=== PATIENT | male | born 1970 | race Hispanic/Latino ===

== ENCOUNTER 2016-07-04 19:03 | Inpatient (IN) | payer OTHER ==
[~2016-07-04] VITALS: Ht 165.1 cm; Wt 86.5 kg
[~2016-07-04 19:03] MED LIST: PERC5TAB6 PO
[2016-07-04 20:07] LABS: MEAN CORPUSCULAR HEMOGLOBIN 27.7 pg (27.0-33.0); MEAN CORPUSCULAR HGB CONC 33.1 g/dl (32.0-36.5); MEAN CORPUSCULAR VOLUME 83.7 fl (80.0-96.0); RED CELL DISTRIBUTION WIDTH 12.8 % (11.5-14.5); WHITE BLOOD COUNT 6.9 K/mm3 (4.0-10.0)
[2016-07-04 20:24] LABS: AMPHETAMINES LEVEL URINE NEGATIVE (NEGATIVE); BENZODIAZEPINES URINE NEGATIVE (NEGATIVE); COCAINE METABOLITE URINE NEGATIVE (NEGATIVE); CONTROL LINE INT CTR LINE PRESENT; METHADONE URINE NEGATIVE (NEGATIVE); OPIATES URINE NEGATIVE (NEGATIVE); TRICYCLIC ANTIDEPRESS URINE NEGATIVE (NEGATIVE)
[2016-07-04 20:46] LABS: ALBUMIN 3.6 GM/DL (3.2-5.2); ALBUMIN/GLOBULIN RATIO 1.24 (1.00-1.93); ALKALINE PHOSPHATASE 117 U/L (45-117); ALT/SGPT 62 U/L (12-78); ANION GAP 9 MEQ/L (8-16); AST/SGOT 20 U/L (15-37); BILIRUBIN,DIRECT 0.1 MG/DL (0.0-0.2); BILIRUBIN,TOTAL 0.3 MG/DL (0.2-1.0); BLOOD UREA NITROGEN 8 MG/DL (7-18); CALCIUM LEVEL 8.7 MG/DL (8.5-10.1); CARBON DIOXIDE LEVEL 32 MEQ/L (21-32); CHLORIDE LEVEL 105 MEQ/L (98-107); CREATININE FOR GFR 1.12 MG/DL (0.70-1.30); GLOMERULAR FILTRATION RATE > 60.0 (>60); GLUCOSE, FASTING 85 MG/DL (70-105); POTASSIUM SERUM 3.9 MEQ/L (3.5-5.1); SODIUM LEVEL 146 MEQ/L (136-145); TOTAL PROTEIN 6.5 GM/DL (6.4-8.2)
[2016-07-04] MEDS ORDERED: LIDOCAINE 5% (LIDODERM) PATCH TD SCH (21:00)
[2016-07-04] MEDS ORDERED: MAXA10TA14 PO (21:46)
[2016-07-04] MEDS ORDERED: MELO7.5T6 PO (21:46)
[2016-07-04] MEDS ORDERED: LORA10TA2 PO (21:46)
[2016-07-04] MEDS ORDERED: ZOLO100T PO (21:46)
[2016-07-04] MEDS ORDERED: LIDO5DIS36 TD (21:46)
[2016-07-04] MEDS ORDERED: MINI5CAP PO (21:46)
[2016-07-04] MEDS ORDERED: OMEP20CA3 PO (21:46)
[2016-07-04] MEDS ORDERED: DICL1GEL3 TD (21:46)
[2016-07-04] MEDS ORDERED: LOSA25TA8 PO (21:46)
[2016-07-04] MEDS ORDERED: MAALOX 30 ML SUSP *UDC PO PRN (23:00)
[2016-07-04] MEDS ORDERED: traZODone 50 MG TAB PO PRN (23:00)
[2016-07-04] MEDS ORDERED: MOM 30ML SUSPENSION UDC PO PRN (23:00)
--- NOTE | 2016-07-05 00:02 | EDDOCDS ---
Physician Documentation [facility] Name: Pablito Schneider Age: 46 yrs Sex: Male : 1970 Arrival Date: 07/04/2016 Time: 19:03 Bed BHU1 Private MD: Yani CASAS Disposition: 07/04/16 21:13 Hospitalization ordered by Juan Gomes for Inpatient Admission. Preliminary diagnosis are Suicidal ideations, Major depressive disorder, recurrent. - Bed requested for Admit. - Status is Inpatient Admission. jeffrey - Condition is Stable. - Problem is an acute exacerbation. - Symptoms are unchanged. Historical: - Allergies: Motrinstomach bleeds; - Home Meds: 1. Minipress 5 mg Oral cap 1 cap 2 times per day 2. Zoloft 100 mg Oral tab 1 tab once daily - PMHx: TBI; Hypertension; - PSHx: foot surgery; - Social history: Smoking status: Patient states was never smoker of tobacco. Preferred Language: Estonian. - : The pt / caregiver states he / she is not on anticoagulants. Home medication list is obtained from the patient. - Exposure Risk Screening:: None identified. Vital Signs: 07/04 19:05 BP 147 / 97; Pulse 99; Resp 16; Temp 98.2(O); Pulse Ox 99% ; Weight 83.91 kg / 184.99 cmb lbs; Height 5 ft. 5 in. (165.10 cm); Pain 6/10; 19:05 Body Mass Index 30.79 (83.91 kg, 165.10 cm) cmb MDM: 19:44 Consult PFS/PSA/Media Marketing Specialist ordered. ke 19:44 Consult PFS/PSA/Media Marketing Specialist: Patient's case requires discussion with on-call Psychiatrist ordered. 19:44 PSA/PFS to call Nursing Machine Ii Cutter, to enter patient data on [place] Safe Act if patient ke involuntarily admitted or transferred for SI or HI ordered. 19:44 Confirm accurate psychiatric medication list and times of last dosage ordered. ke 19:44 Detain Pt Until Medically/PFS Cleared ordered. ke 19:45 Acetaminophen Level Ordered. EDMS 19:45 Basic Metabolic Profile Ordered. EDMS 19:45 Complete Blood Count Ordered. EDMS 19:45 Drug Eval Toxicology ED Only Ordered. EDMS 19:45 Ethyl Alcohol (ethanol) Ordered. EDMS 19:45 Liver Profile Ordered. EDMS 19:45 Salicylate Level Ordered. EDMS 19:45 Thyroid Stimulating Hormone Ordered. EDMS 21:10 Acetaminophen Level Reviewed. ke 21:10 Basic Metabolic Profile Reviewed. ke 21:10 Complete Blood Count Reviewed. ke 21:10 Salicylate Level Reviewed. ke 21:10 Drug Eval Toxicology ED Only Reviewed. ke 21:10 Ethyl Alcohol (ethanol) Reviewed. ke 21:10 Liver Profile Reviewed. ke 21:10 Thyroid Stimulating Hormone Reviewed. ke 21:13 BED REQUEST+ADM ordered. EDMS 22:01 Financial registration complete. gjb 23:06 Admit to IM: ordered. EDMS 23:06 REGULAR DIET ordered. EDMS 23:25 [facility] Payment Agreement was scanned into [employer] and attached to record. gjb 23:27 [facility] Legal paperwork was scanned into [employer] and attached to record. jfb 23:27 Consult PFS/PSA/Media Marketing Specialist complete. jfb 23:27 Consult PFS/PSA/Media Marketing Specialist: Patient's case requires discussion with on-call jfb Psychiatrist complete. 23:27 PSA/PFS to call Nursing Machine Ii Cutter, to enter patient data [place] Safe [place] if patient jfb involuntarily admitted or transferred for SI or HI complete. Signatures: Dispatcher [employer] EDMD Lily Ji, RN RN Antwan Borja, DIVISION ENGINEER DIVISION ENGINEER Jessie Romero PSA PSA Julia Kate, RN RN Janae Stubbs The chart was reviewed and I authenticate all verbal orders and agree with the evaluation and treatment provided.Attachments: 23:25 [facility] [place] tonny MTDD
--- NOTE | 2016-07-05 00:03 | EDDOCDS ---
Nurse's Notes [facility] Name: Pablito Schneider Age: 46 yrs Sex: Male : 1970 Arrival Date: 07/04/2016 Time: 19:[address] [facility] Diagnosis: Suicidal ideations;Major depressive disorder, recurrent Presentation: 07/04 19:16 Presenting complaint: Patient states: history of concussion a few years ago, reports sls1 ever since has been depressed, has anger issues, and SI with no plan. 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 Mental Health Triage Level: Level 2: The patient displays active suicidal ideations. Adult Sepsis Screening: The patient does not have new or worsening altered mentation. Patient's respiratory rate is less than 22. Systolic blood pressure is greater than 100. Patient has a qSOFA score of 0- Negative Sepsis Screen. Suicide/Homicide risk assessment- The patient admits to and/or has been reported to be having suicidal ideations. Patient denies SI and HI but presents with another emotional, behavioral or other mental health complaint. The patient reports that he/she has not been admitted to an inpatient mental health facility in the last 30 days. The patient reports that he/she does not have a recent or current history of substance abuse. The patient reports that he/she has a prior history of suicide attempt and/or organized plan. 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 Transition of care: patient was not received from another setting of care. Red Flag criteria, patient assessed and taken directly to a bed. 19:16 Acuity: CHERI Level 3 sls1 19:16 Method Of Arrival: Walkin/Carried/Asstd sls1 Triage Assessment: 19:18 General: Appears in no apparent distress, Behavior is crying. Pain: Denies pain. Pt sls1 Declines HIV testing. The patient is triaged at the bedside. See Assessment in Nurses Notes section of ED record. Neurological: No deficits noted. Respiratory: No deficits noted. Derm: No deficits noted. Historical: - Allergies: Motrinstomach bleeds; - Home Meds: 1. Minipress 5 mg Oral cap 1 cap 2 times per day 2. Zoloft 100 mg Oral tab 1 tab once daily - PMHx: TBI; Hypertension; - PSHx: foot surgery; - Social history: Smoking status: Patient states was never smoker of tobacco. Preferred Language: Fijian. - : The pt / caregiver states he / she is not on anticoagulants. Home medication list is obtained from the patient. - Exposure Risk Screening:: None identified. Screenin:47 Screening information is obtained from the patient. Fall risk: No risks identified. mgs Assistance ADL's: requires no assistance with activities of daily living. Abuse/DV Screen: The patient / caregiver reports he/she is: not in a situation that causes fear, pain or injury. Nutritional screening: No deficits noted. Advance Directives: Currently, there is no health care proxy. There is no active DNR order. home support is adequate. Assessment: 20:41 General: Appears in no apparent distress, comfortable, Behavior is appropriate for age, ka4 cooperative, pleasant. Neurological: Level of Consciousness is awake, alert, listless, obeys commands, Oriented to person, place, time, Cash Posting Specialist are equal bilaterally Moves all extremities. Gait is steady, Speech is normal, Facial symmetry appears normal. Respiratory: Airway is patent Respiratory effort is even, unlabored, Respiratory pattern is regular, symmetrical. GI: Abdomen is non- distended. Derm: Skin is intact, is healthy with good turgor, Skin is pink, warm & dry. 22:31 General: Appears in no apparent distress, Behavior is cooperative. Pain: Location: mgs right elbow, right hyand, bilateral feet, bilateral knees Pain currently is 5 out of 10 on a pain scale. Neurological: Level of Consciousness is awake, alert, Oriented to person, place, time. Cardiovascular: Capillary refill < 3 seconds Heart tones S1 S2 present. Respiratory: Airway is patent Respiratory effort is even, unlabored, Respiratory pattern is regular, symmetrical. Derm: Skin is pink, warm & dry. 22:32 General: Appears in no apparent distress, comfortable, Behavior is appropriate for age, ka4 cooperative, pleasant. Respiratory: Airway is patent Respiratory effort is even, unlabored, Respiratory pattern is regular, symmetrical. Derm: Skin is pink, warm & dry. 23:47 General: Appears in no apparent distress, Behavior is appropriate for age, cooperative. mgs Neurological: Level of Consciousness is awake, alert, Oriented to person, place, time. Cardiovascular: Capillary refill < 3 seconds Heart tones S1 S2 present. Respiratory: Airway is patent Respiratory effort is even, unlabored, Respiratory pattern is regular, symmetrical. Derm: Skin is pink, warm & dry. Mental Health Eval: 23:27 Status: 6 years active duty with three deployments and 9 years [employer] jfb [facility]: The patient is not an established patient of [facility]. Referral Information: Evaluation referral is generated by weigh and charge worker at [facility] Mrs. Busch [phone] had PT's YANA bring him to ED. The patient was referred for evaluation because Depression with SI. Subjective: The patients chief complaint is PT states he is from [place] but is here for medical care in the [facility] and he ahs been there for about 1 year. He was recently told he has a month or two left at [facility] then he should be medically cleared to return to [place] but PT is very upset by this. PT feels that if he could ETS from [facility] and not have to return to his unit he would feel less stress but he could not elaborate on why he wants to avoid his old unit. PT states he had three deployments and in each one he became angrier and angrier and he also experienced multiple loss of life. PT denies any treatment for mental health prior to [facility]. 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 PT admits that he has "thoughts" meaning SI but could not described frequency or intensity. He often wakes up from nightmares and has had poor sleep for awhile. PT cannot CFS and is open to admission. Delusions are denied. Patient's mood is depressed, Hallucinations are denied. Mental Health history: anxiety, depression, sleep disturbance, suicide ideation Mental Health Admissions: 02/2016 transfer to [facility] [place] Current Outpatient Mental Health Services: Psychiatrist / Agency: PT receiving counseling and medication management via the [facility]. He also has a mental health social worker via [facility]. Patient presents to Emergency Department with the following symptoms within the past 2 weeks: decreased appetite, depressed mood, feelings of helplessness/hopelessness, labile mood, sleep disturbance - erratic suicidal ideation with no plan. Substance abuse: Pt denies. Mental status exam: Patients appearance is appropriate, Patient's behavior is cooperative, Speech is normal. Affect is flat. Mood is depressed. Hallucinations are denied. Appetite is poor. Memory is fair. Energy level is normal. Content of thought is depressive. cannot CFS Thought process is intact. Cognitive level is oriented to person, place, time and situation Patient's insight is fair. Judgement is fair. Rapport with interviewer is good. Suicidal Ideation is denied. Homicidal ideation is denied. Disposition: Medically cleared for disposition by Antwan PULLIAM Psychiatric Consult is performed by phone with Dr Juan Gomes MD. [facility] Admission Criteria: The patient is experiencing suicidal ideation. The patient requires continuous observation and/or control to protect self, others or property. The patient's care requires a multi-modal treatment plan under close supervision and coordination due to the complexity and severity of the patient's symptoms. Legal Status: Patient's legal status will be Emergency admission: . [employer] Safe Act: [employer] Safe Act is not applicable because patient was registered less than 6 months ago. DSM-V Differential Diagnosis: Unspecified Depressive Disorder (F32.9). Insurance Pre-Certification: Not Required, . Awaiting: transfer to [facility]. Vital Signs: 19:05 BP 147 / 97; Pulse 99; Resp 16; Temp 98.2(O); Pulse Ox 99% ; Weight 83.91 kg; Height 5 cmb ft. 5 in. (165.10 cm); Pain 6/10; 19:05 Body Mass Index 30.79 (83.91 kg, 165.10 cm) [facility] Vitals: 19:05 Log In Time: July 04, 2016 at 19:03. b ED Course: 19:05 Patient visited by Katherin Elmore. cmb 19:05 [facility] is Private Physician. cmb 19:05 Patient moved to Waiting cmb 19:06 Patient moved to [facility] sls1 19:17 Triage Initiated sls1 19:43 Patient visited by Paulie Rodriguez. tr 19:44 Antwan Brown FNP is [facility]. ke 19:44 Patient visited by Antwan Brown FNP. ke 19:44 Patient visited by Antwan Brown FNP. ke 20:00 Patient visited by Paulie Rodriguez. tr 20:14 Patient visited by Paulie Rodriguez. tr 20:30 Psych Safety Check: Location: Psych Room. Visual Assessment: Cooperative. tr 20:42 Patient visited by Raquel Young LPN. ka4 20:42 Property patient has hearing aids with him . ka4 20:43 Patient visited by Paulie Rodriguez. tr 21:02 Patient visited by Paulie Rodriguez. tr 21:13 Juan Gomes MD is Hospitalizing Provider. ke 21:16 Patient visited by Paulie Rodriguez. tr 21:32 Patient visited by Paulie Rodriguez. tr 21:59 Patient visited by Paulie Rodriguez. tr 22:28 Patient visited by Paulie Rodriguez. tr 22:32 Patient visited by Marko Jacobs RN. mgs 22:33 Patient visited by Raquel Young LPN. ka4 23:25 [facility] [place] Agreement was scanned into [employer] and attached to record. gjb 23:27 [facility] Legal paperwork was scanned into [employer] and attached to record. jfb 23:35 Patient visited by Paulie Rodriguez. tr 23:46 Marko Jacobs RN is Primary Nurse. mgs 23:47 Patient visited by Paulie Rodriguez. tr 23:48 Patient visited by Marko Jacobs RN. mgs Attachments: 23:27 [facility] Legal paperwork jfb Order Results: Lab Order: Acetaminophen Level; SPEC'M 07/04/16 19:54 Test: ACETAMINOPHEN LEVEL; Value: < 2.0; Range: 10.0-30.0; Abnormal: Below low normal; Units: UG/ML; Status: F Lab Order: Basic Metabolic Profile; SPEC'M 07/04/16 19:54 Test: GLUCOSE, FASTING; Value: 85; Range: 70-105; Units: MG/DL; Status: F Test: BLOOD UREA NITROGEN; Value: 8; Range: 7-18; Units: MG/DL; Status: F Test: CREATININE FOR GFR; Value: 1.12; Range: 0.70-1.30; Units: MG/DL; Status: F Test: GLOMERULAR FILTRATION RATE; Value: > 60.0; Range: >60; Status: F Test: SODIUM LEVEL; Value: 146; Range: 136-145; Abnormal: Above high normal; Units: MEQ/L; Status: F Test: POTASSIUM SERUM; Value: 3.9; Range: 3.5-5.1; Units: MEQ/L; Status: F Test: CHLORIDE LEVEL; Value: 105; Range: 98-107; Units: MEQ/L; Status: F Test: CARBON DIOXIDE LEVEL; Value: 32; Range: 21-32; Units: MEQ/L; Status: F Test: ANION GAP; Value: 9; Range: 8-16; Units: MEQ/L; Status: F Test: CALCIUM LEVEL; Value: 8.7; Range: 8.5-10.1; Units: MG/DL; Status: F Test Note: ; Units are mL/min/1.73 m2 Chronic Kidney Disease Staging per NKF: Stage I & II GFR >=60 Normal to Mildly Decreased Stage III GFR 30-59 Moderately Decreased Stage IV GFR 15-29 Severely Decreased Stage V GFR <15 Very Little GFR Left ESRD GFR <15 on FORGING DIES FINAL FINISHER Lab Order: Complete Blood Count; SPEC'M 07/04/16 19:54 Test: WHITE BLOOD COUNT; Value: 6.9; Range: 4.0-10.0; Units: K/mm3; Status: F Test: RED BLOOD COUNT; Value: 4.69; Range: 4.30-6.10; Units: M/mm3; Status: F Test: HEMOGLOBIN; Value: 13.0; Range: 14.0-18.0; Abnormal: Below low normal; Units: g/dl; Status: F Test: HEMATOCRIT; Value: 39.2; Range: 42.0-52.0; Abnormal: Below low normal; Units: %; Status: F Test: MEAN CORPUSCULAR VOLUME; Value: 83.7; Range: 80.0-96.0; Units: fl; Status: F Test: MEAN CORPUSCULAR HEMOGLOBIN; Value: 27.7; Range: 27.0-33.0; Units: pg; Status: F Test: MEAN CORPUSCULAR HGB CONC; Value: 33.1; Range: 32.0-36.5; Units: g/dl; Status: F Test: RED CELL DISTRIBUTION WIDTH; Value: 12.8; Range: 11.5-14.5; Units: %; Status: F Test: PLATELET COUNT, AUTOMATED; Value: 294; Range: 150-450; Units: k/mm3; Status: F Lab Order: Drug Eval Toxicology ED Only; SPEC'M 07/04/16 19:57 Test: AMPHETAMINES LEVEL URINE; Value: NEGATIVE; Range: NEGATIVE; Status: F Test: BARBITURATES URINE; Value: NEGATIVE; Range: NEGATIVE; Status: F Test: BENZODIAZEPINES URINE; Value: NEGATIVE; Range: NEGATIVE; Status: F Test: CANNABINOIDS URINE; Value: NEGATIVE; Range: NEGATIVE; Status: F Test: COCAINE METABOLITE URINE; Value: NEGATIVE; Range: NEGATIVE; Status: F Test: METHADONE URINE; Value: NEGATIVE; Range: NEGATIVE; Status: F Test: OPIATES URINE; Value: NEGATIVE; Range: NEGATIVE; Status: F Test: TRICYCLIC ANTIDEPRESS URINE; Value: NEGATIVE; Range: NEGATIVE; Status: F Test Note: ; ALL PRESUMPTIVE POSITIVE FINDINGS ARE UNCONFIRMED NORMAL VALUES THRESHOLD IN NG/ML AMPHETAMINES 1000 METHAMPHETAMINES 1000 BARBITURATES 300 BENZODIAZEPINES 300 CANNABINOIDS (THC) 50 COCAINE METABOLITE 300 METHADONE 300 OPIATES 300 PHENCYCLIDINE 25 TRICYCLIC ANTIDEPRESSANTS 1000 RESULTS ARE FOR MEDICAL PURPOSES ONLY. ALL URINE SPECIMENS WILL BE SAVED FOR 3 DAYS. IF CONFIRMATION OF A PRESUMPTIVE POSTIVE SCREEN RESULT IS DESIRED, CALL CHEMISTRY ([phone]) AND REQUEST URINE TO BE SENT TO REFERENCE LAB. FOR A LIST OF CLOSELY RELATED COMPOUNDS PLEASE CALL THE LAB. Lab Order: Ethyl Alcohol (ethanol); SPEC'M 07/04/16 19:54 Test: ETHYL ALCOHOL (ETHANOL); Value: < 0.003; Range: 0.000-0.010; Units: %; Status: F Lab Order: Liver Profile; SPEC'M 07/04/16 19:54 Test: AST/SGOT; Value: 20; Range: 15-37; Units: U/L; Status: F Test: ALT/SGPT; Value: 62; Range: 12-78; Units: U/L; Status: F Test: ALKALINE PHOSPHATASE; Value: 117; Range: 45-117; Units: U/L; Status: F Test: BILIRUBIN,TOTAL; Value: 0.3; Range: 0.2-1.0; Units: MG/DL; Status: F Test: BILIRUBIN,DIRECT; Value: 0.1; Range: 0.0-0.2; Units: MG/DL; Status: F Test: TOTAL PROTEIN; Value: 6.5; Range: 6.4-8.2; Units: GM/DL; Status: F Test: ALBUMIN; Value: 3.6; Range: 3.2-5.2; Units: GM/DL; Status: F Test: ALBUMIN/GLOBULIN RATIO; Value: 1.24; Range: 1.00-1.93; Status: F Lab Order: Salicylate Level; SPEC'M 07/04/16 19:54 Test: SALICYLATE LEVEL; Value: < 1.7; Range: 5.0-30.0; Abnormal: Below low normal; Units: MG/DL; Status: F Lab Order: Thyroid Stimulating Hormone; SPEC'M 07/04/16 19:54 Test: THYROID STIMULATING HORMONE; Value: 2.430; Range: 0.358-3.740; Units: uIU/ML; Status: F Outcome: 21:13 Decision to Hospitalize by Provider. carito 07/05 00:01 Patient left the ED. jeffrey Signatures: Lily Ji, RN RN Paulie Baker Karl, STATEMENT SERVICES REPRESENTATIVE STATEMENT SERVICES REPRESENTATIVE Jessie Romero, SARAH PSA Julia Kate RN RN sls1 Boshart, Chelsea cmb Anderson, Kodie, LPN LPN ka Marko Jacobs RN RN mgs Beck, Gabriela gjb MTDD
[2016-07-05 00:07] VITALS: BP 135/99
[2016-07-05] MEDS ORDERED: RIZATRIPTAN BENZOATE 10 MG TAB PO PRN (00:30)
[2016-07-05] MEDS ORDERED: LORATADINE 10 MG TAB PO PRN (00:30)
[2016-07-05] MEDS: SERTRALINE 100 MG TAB PO SCH ×2 (02:03→21:33)
[2016-07-05] MEDS: PRAZOSIN 1 MG CAP PO SCH ×2 (02:03→21:33)
[2016-07-05] MEDS: MELOXICAM (MOBIC) 7.5 MG TAB PO SCH ×2 (02:03→21:33)
[2016-07-05] MEDS ORDERED: PRAZOSIN 1 MG CAP PO SCH (09:00)
[2016-07-05] MEDS: LOSARTAN 25 MG TAB PO SCH (09:32)
[2016-07-05] MEDS: OMEPRAZOLE 20 MG CAP PO SCH (09:32)
[2016-07-05] MEDS: LIDOCAINE 5% (LIDODERM) PATCH TD SCH (09:32)
--- NOTE | 2016-07-05 09:32 | HPEPDOC ---
[facility] History & Physical History and Physical Entry made in error. Laboratory Data [facility] Labs Laboratory Tests 2 07/04/16 19:54: Acetaminophen Level < 2.0L, Aspartate Amino Transf (AST/SGOT) 20, Alanine Aminotransferase (ALT/SGPT) 62, Alkaline Phosphatase 117, Total Bilirubin 0.3, Direct Bilirubin 0.1, Albumin 3.6, Albumin/Globulin Ratio 1.24, Anion Gap 9, Calcium Level 8.7, Ethyl Alcohol Level < 0.003, Glomerular Filtration Rate > 60.0, Salicylates Level < 1.7L, Thyroid Stimulating Hormone (TSH) 2.430, Total Protein 6.5 07/04/16 19:57: Urine Amphetamine Level NEGATIVE, Urine Benzodiazepines Screen NEGATIVE, Urine Cannabinoids NEGATIVE, Urine Cocaine Metabolite NEGATIVE, Urine Opiates Screen NEGATIVE, Urine Barbiturates, Qualitative NEGATIVE, Urine Methadone Screen NEGATIVE, Urine Tricyclic Antidepressants NEGATIVE CBC/BMP Laboratory Tests 07/04/16 19:54 Red Blood Count 4.69, Mean Corpuscular Volume 83.7, Mean Corpuscular Hemoglobin 27.7, Mean Corpuscular Hemoglobin Concent 33.1, Red Cell Distribution Width 12.8 Medications Scheduled (Diclofenac Sodium) 1 % Gel 1 DOSE TD BID (Reported) PLACES MEDICATION ON FEET Losartan Potassium (Losartan Potassium) 25 Mg Tab 25 MG PO DAILY (Reported) Meloxicam (Meloxicam) 7.5 Mg Tab 7.5 MG PO QHS (Reported) Prazosin HCl (Minipress) 5 Mg Cap 5 MG PO QHS (Reported) Sertraline Hcl (Zoloft) 100 Mg Tab 100 MG PO QHS (Reported) Scheduled PRN Lidocaine (Lidoderm) 5 % Dis 1 PATCH TD QHS PRN PRN PAIN (Reported) PLACES ON FEET Loratadine (Loratadine) 10 Mg Tab 10 MG PO DAILY PRN PRN ALLERGIES (Reported) Omeprazole (Omeprazole) 20 Mg Cap 20 MG PO DAILY PRN PRN EPIGASTRIC DISCOMFORT ( Reported) Rizatriptan Benzoate (Maxalt) 10 Mg Tab 10 MG PO ASDIRECTED PRN PRN MIGRAINE ( Reported) Allergies Coded Allergies: Ibuprofen (Verified Allergy, Unknown, 02/22/16) Giovana Monroe Jul 05, 2016 09:32 Mood: [Irrational, Elated, Irritable, Depressed, Anxious, Restricted, Neutral]. Affect: [Appropriate, Reactive, Flat, Constricted, Animated, Irrational, Expansive, Restricted, Depressed, Anxious, Agitated, Hypomania, Lability]. ASSESSMENT: . DIAGNOSES: 1. . 2. . 3. . PROBLEM LIST: 1. . 2. . 3. . MANAGEMENT PLAN: 1. . 2. . 3. . ESTIMATED LENGTH OF STAY: - days. Laboratory Data 24[facility] Labs Laboratory Tests 2 07/04/16 19:54: Acetaminophen Level < 2.0L, Aspartate Amino Transf (AST/SGOT) 20, Alanine Aminotransferase (ALT/SGPT) 62, Alkaline Phosphatase 117, Total Bilirubin 0.3, Direct Bilirubin 0.1, Albumin 3.6, Albumin/Globulin Ratio 1.24, Anion Gap 9, Calcium Level 8.7, Ethyl Alcohol Level < 0.003, Glomerular Filtration Rate > 60.0, Salicylates Level < 1.7L, Thyroid Stimulating Hormone (TSH) 2.430, Total Protein 6.5 07/04/16 19:57: Urine Amphetamine Level NEGATIVE, Urine Benzodiazepines Screen NEGATIVE, Urine Cannabinoids NEGATIVE, Urine Cocaine Metabolite NEGATIVE, Urine Opiates Screen NEGATIVE, Urine Barbiturates, Qualitative NEGATIVE, Urine Methadone Screen NEGATIVE, Urine Tricyclic Antidepressants NEGATIVE CBC/BMP Laboratory Tests 07/04/16 19:54 Red Blood Count 4.69, Mean Corpuscular Volume 83.7, Mean Corpuscular Hemoglobin 27.7, Mean Corpuscular Hemoglobin Concent 33.1, Red Cell Distribution Width 12.8 Medications Scheduled (Diclofenac Sodium) 1 % Gel 1 DOSE TD BID (Reported) PLACES MEDICATION ON FEET Losartan Potassium (Losartan Potassium) 25 Mg Tab 25 MG PO DAILY (Reported) Meloxicam (Meloxicam) 7.5 Mg Tab 7.5 MG PO QHS (Reported) Prazosin HCl (Minipress) 5 Mg Cap 5 MG PO QHS (Reported) Sertraline Hcl (Zoloft) 100 Mg Tab 100 MG PO QHS (Reported) Scheduled PRN Lidocaine (Lidoderm) 5 % Dis 1 PATCH TD QHS PRN PRN PAIN (Reported) PLACES ON FEET Loratadine (Loratadine) 10 Mg Tab 10 MG PO DAILY PRN PRN ALLERGIES (Reported) Omeprazole (Omeprazole) 20 Mg Cap 20 MG PO DAILY PRN PRN EPIGASTRIC DISCOMFORT ( Reported) Rizatriptan Benzoate (Maxalt) 10 Mg Tab 10 MG PO ASDIRECTED PRN PRN MIGRAINE ( Reported) Allergies Coded Allergies: Ibuprofen (Verified Allergy, Unknown, 02/22/16) Giovana Monroe Jul 05, 2016 09:32
--- NOTE | 2016-07-05 10:53 | HPEPDOC ---
Medical History and Physical Date of Admission Jul 05, 2016 at 00:02 History and Physical PCP: [facility] ATTENDING: Dr. Andre Dolan HPI: 46yoM admitted to [facility] for MDD, being medically examined today. No acute medical complaints today. Denies any fevers, chills, weakness, fatigue, [place], CP, SOB, cough, palpitations, abdominal pain, N/V/D or changes in bowel or bladder habits. 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 ROS: As noted in HPI, otherwise 11pt ROS of systems reviewed and unremarkable PE: GEN: 46yoM, appears stated age. Well-nourished, well developed. No acute distress. Alert and oriented x 3. Pleasant, interactive. HEENT: Normocephalic, atraumatic. Pupils are equal, round, and reactive to light. Extraocular movements are intact. No nystagmus appreciated. Sclera are nonicteric. Conjunctiva without injection. Nose midline. Nasal turbinates without bogginess. EACs both patent BL. TMs both visualized and hdz with good cone of light, no bulging or erythema. No facial asymmetry. Moist mucous membranes. Dentition fair. Pharynx pink and moist, no cobblestoning. Neck supple , trachea midline. No lymphadenopathy or thyromegaly appreciated. CHEST: Regular rate and rhythm, +S1, +S2 LUNGS: Clear to auscultation bilaterally. No wheezes, rales, or rhonchi. Breathing appears symmetric and easy. Patient is speaking in full sentences. No accessory muscle use. ABD: Round, soft, non-tender, non-distended. +Bowel sounds throughout. No rebound or guarding. No costovertebral angle tenderness. EXT: Pulses 2+ bilaterally dorsalis pedis and radial. No lower extremity edema appreciated. SKIN: [place], dry, warm. Capillary refill <2sec. No rashes. NEURO: Alert and oriented x 3. Cranial nerves III-XII are intact. No focal deficits appreciated. He is wearing a brace on his right wrist. EKG: pending. A&P: 46yoM admitted to [facility] for MDD 1. Psych. Plan per Psychiatry. Obtain baseline EKG to assure the safety of psychiatric medications as they can prolong the QT interval. 2. Carpal tunnel syndrome. Currently wearing brace on the right. Carpal tunnel release is pending with [facility] scheduled 07/11/16. Continue Mobic 7.5 mg daily. 3. Hypertension. Continue Cozaar 25 mg daily. 4. Follow up with PCP on discharge. [facility]. 5. GERD. Continue Prilosec 20 mg daily. 6. Allergic rhinitis. Continue Claritin daily. 7. Chronic headaches. Continue Maxalt as needed at onset of headache. 8. Staff member present throughout exam, safety aid Billy. Vital Signs Vital Signs Label Value Date Time Patient Temperature 98.5 degrees F 07/05/16 000 Temperature Source Tympanic 07/05/16 000 Pulse 89 07/05/16 000 Respiratory Rate 18 bpm 07/05/16 000 Blood Pressure Assessment 135/99 (111) 07/05/16 0007 Laboratory Data Labs 24H Laboratory Tests 2 07/04/16 19:54: Acetaminophen Level < 2.0L, Aspartate Amino Transf (AST/SGOT) 20, Alanine Aminotransferase (ALT/SGPT) 62, Alkaline Phosphatase 117, Total Bilirubin 0.3, Direct Bilirubin 0.1, Albumin 3.6, Albumin/Globulin Ratio 1.24, Anion Gap 9, Calcium Level 8.7, Ethyl Alcohol Level < 0.003, Glomerular Filtration Rate > 60.0, Salicylates Level < 1.7L, Thyroid Stimulating Hormone (TSH) 2.430, Total Protein 6.5 07/04/16 19:57: Urine Amphetamine Level NEGATIVE, Urine Benzodiazepines Screen NEGATIVE, Urine Cannabinoids NEGATIVE, Urine Cocaine Metabolite NEGATIVE, Urine Opiates Screen NEGATIVE, Urine Barbiturates, Qualitative NEGATIVE, Urine Methadone Screen NEGATIVE, Urine Tricyclic Antidepressants NEGATIVE CBC/BMP Laboratory Tests 07/04/16 19:54 Red Blood Count 4.69, Mean Corpuscular Volume 83.7, Mean Corpuscular Hemoglobin 27.7, Mean Corpuscular Hemoglobin Concent 33.1, Red Cell Distribution Width 12.8 Home Medications Scheduled (Diclofenac Sodium) 1 % Gel 1 DOSE TD BID PLACES MEDICATION ON FEET Losartan Potassium (Losartan Potassium) 25 Mg Tab 25 MG PO DAILY Meloxicam (Meloxicam) 7.5 Mg Tab 7.5 MG PO QHS Prazosin HCl (Minipress) 5 Mg Cap 5 MG PO QHS Sertraline Hcl (Zoloft) 100 Mg Tab 100 MG PO QHS Scheduled PRN Lidocaine (Lidoderm) 5 % Dis 1 PATCH TD QHS PRN PRN PAIN PLACES ON FEET Loratadine (Loratadine) 10 Mg Tab 10 MG PO DAILY PRN PRN ALLERGIES Omeprazole (Omeprazole) 20 Mg Cap 20 MG PO DAILY PRN PRN EPIGASTRIC DISCOMFORT Rizatriptan Benzoate (Maxalt) 10 Mg Tab 10 MG PO ASDIRECTED PRN PRN MIGRAINE Allergies Coded Allergies: Ibuprofen (Verified Allergy, Unknown, 02/22/16) Li Valerio Jul 05, 2016 10:53
[2016-07-05 18:00] VITALS: BP 113/79
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
[2016-07-05] MEDS: **NOTE PATIENT COMMENT** MISC XX SCH (21:33)
[2016-07-06 06:41] VITALS: BP 165/89
[2016-07-06] MEDS: OMEPRAZOLE 20 MG CAP PO SCH (08:17)
[2016-07-06] MEDS: LIDOCAINE 5% (LIDODERM) PATCH TD SCH (08:17)
[2016-07-06] MEDS: LOSARTAN 25 MG TAB PO SCH (08:17)
[2016-07-06 18:00] VITALS: BP 144/102
[2016-07-06] MEDS ORDERED: traZODone 50 MG TAB PO PRN (19:30)
--- NOTE | 2016-07-06 20:05 | IPNPDOC ---
[facility] Progress Note Progress Note DATE OF SERVICE: 07/06/16 HISTORY: Patient was met with today to evaluate treatment progress on the inpatient unit. Patient has been visible in lounge, attending groups, socializing with select peers. Patient reports 5/10 anxiety, 5/10 depression, denies suicidal and homicidal ideation, but indicates he experienced passive SI symptoms last night related to "it might be easier if I just wasn't living," denies having plan or intent to harm self at time of symptoms. Patient denies audiovisual hallucinations, denies urge to engage in self-injurious behavior. Patient initially reports sleeping well, and tells remote mortgage underwriter he did not sleep well denying latency challenges, but indicating he woke up during the night. Patient is asking for sleeping aid dose increase. Patient indicated during yesterday's interaction that Zoloft was working well, today reiterates medication is effective, then informs remote mortgage underwriter medication is not as effective as it has been, then informs remote mortgage underwriter medication remains effective. Patient denies medication side effects. Patient denies nightmares symptoms and indicates prazosin remains effective, denies experiencing a.m. dizziness. Patient denies. Seeing symptoms of anger, irritability, or aggression. Patient has been attending groups and indicates he finds them "educational and helpful." Patient denies challenges with appetite, indicates energy level is normal, continues to experience challenges with concentration and focus. Patient presents with no signs of acute distress. Patient is active in the [facility], has history of TBI from 2007 and is preparing attire from [employer] in 3 months. VITAL SIGNS: Please see below. NEW TEST RESULTS: Labs unremarkable on admission with exception of low Hgb and HCT, PA is monitoring. UDS negative on admission. Echo completed date of entry, results not yet available in [employer] CURRENT MEDICATIONS: See below. 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 Patient is pleasant, generally cooperative though continues to appear evasive at times, exhibits adequate personal hygiene, and appears stated age. Speech: Is slow, low volume at times, coherent, unspontaneous Thought processes: Clear, linear, generally goal-directed Rate of thoughts: Delayed Thought content: Logical. Abstract reasoning: Limited Associations: Intact Abnormal or psychotic thoughts: denies hallucinations, Delusions, Preoccupation with violence, Homicidal or suicidal ideation, and Obsessions. Judgment: Limited Insight: Limited Oriented to: Time, place and person. Recent and Remote Memory: Appears intact, some delay. Attention Span and Concentration: Limited. Language: Normal. Fund of knowledge: Adequate Mood: "I'm ok. I have surgery on the . Will I be out by then?" Patient appears sad and tense, no mood lability noted, no agitation or irritability Affect: Blunted, congruent with affect. 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 Patient initially appears less depressed and anxious today with reduced delay in responses, until asked about subject of exiting [employer]. When asked if he felt about long-term, patient became distant, did not respond to many of remote mortgage underwriter's questions, and stared off into space. When subject is changed to patient's stated desire for discharge in time for carpal tunnel surgery, patient again became responsive and engageable. Patient is evasive regarding medication effectiveness, however was able to provide remote mortgage underwriter with enough information to determine patient is not currently experiencing sleep latency challenges, but is experiencing mild maintenance challenges. Therefore, will increase trazodone to 75 mg po hs PRN insomnia. Will also continue to monitor for need to adjust Zoloft dose. Patient has been observed to active on unit and attending groups. Patient denies current suicidal and homicidal ideation, is able to effectively engage in safety planning process, and verbalizes awareness of how to access supportive services on the unit if needed. Patient has been encouraged to continue to participate in unit programming to facilitate the development of coping mechanisms. Patient verbalizes awareness of and agreement with discharge plan to return to [facility]. MANAGEMENT PLAN: Increase trazodone to 75 mg po hs PRN insomnia, continue Zoloft 100 mg po q hs and prazosin 5 mg po q hs. Continue to monitor need for medication changes/dosing adjustment Maintain safety precautions Patient to attend groups and participate in unit programming to develop coping strategies Engage patient in discharge planning process and arrange meeting with command to evaluate safe discharge planning when appropriate Patient to return to [facility] and outpatient behavioral health at [facility] for psychotherapy, recommend change from TeleMed management to [id number] medication management services Patient to follow up with Yani DUKE upon discharge Vital Signs/I&O Vital Signs Date Time Temp Pulse Resp B/P Pulse Ox O2 Delivery O2 Flow Rate FiO2 07/06/16 08:17 147/83 07/06/16 06:41 98.1 102 18 Current Medications Current Medications Acetaminophen (Tylenol) 650 mg Q6HP PRN PO HEADACHE or DISCOMFORT; Start at 23:00; Stop 08/03/16 at 22:59 Al Hydrox/Mg Hydrox/Simethicone (Mylanta) 30 ml Q4HP PRN PO HEARTBURN/ INDIGESTION; Start 07/04/16 at 23:00; Stop 08/03/16 at 22:59 Home Med (Med Rec Complete!) ASDIRECTED XX ; Start 07/04/16 at 22:00; Stop at 00:14; Status DC Lidocaine (Lidoderm Patch) 1 patch QAM TD Last administered on 07/06/16 08:17 ; Start 07/05/16 at 09:00; Stop 08/04/16 at 08:59 Lidocaine (Lidoderm Patch) 1 patch QHS TD ; Start 07/04/16 at 21:00; Stop at 04:08; Status DC Loratadine (Claritin) 10 mg DAILYPRN PRN PO ALLERGIES; Start 07/05/16 at 00:30 ; Stop 08/04/16 at 00:29 Losartan Potassium (Cozaar) 25 mg DAILY PO Last administered on 07/06/16 08:17 ; Start 07/05/16 at 09:00; Stop 08/04/16 at 08:59 Magnesium Hydroxide (Milk Of Magnesia) 30 ml DAILYPRN PRN PO CONSTIPATION; Start 07/04/16 at 23:00; Stop 08/03/16 at 22:59 Meloxicam (Mobic) 7.5 mg QHS PO Last administered on 07/05/16 21:33; Start at 21:00; Stop 08/03/16 at 20:59 Non-Formulary Medication ( See Comment Field Below ) REMOVE LIDODERM PATCH DAILY@21 XX Last administered on 07/05/16 21:33; Start 07/05/16 at 21:00; Stop 08/04/16 at 20:59 Omeprazole (PriLOSEC) 20 mg DAILY PO Last administered on 07/06/16 08:17; Start 07/05/16 at 09:00; Stop 08/04/16 at 08:59 Prazosin HCl (Minipress) 5 mg BID PO ; Start 07/05/16 at 09:00; Stop 07/05/16 at 09:00; Status DC Prazosin HCl (Minipress) 5 mg QHS PO Last administered on 07/05/16 21:33; Start 07/04/16 at 21:00; Stop 08/03/16 at 20:59 Rizatriptan Benzoate (Maxalt) 10 mg Q2HP PRN PO MIGRAINE; Start 07/05/16 at 00: 30; Stop 08/04/16 at 00:29 Sertraline HCl (Zoloft) 100 mg DAILY@21 PO Last administered on 07/05/16 21:33 ; Start 07/04/16 at 21:00; Stop 08/03/16 at 20:59 Trazodone HCl (Desyrel) 50 mg QHSP PRN PO INSOMNIA Last administered on 02:06; Start 07/04/16 at 23:00; Stop 08/03/16 at 22:59 Allergies Coded Allergies: Ibuprofen (Verified Allergy, Unknown, 02/22/16) Giovana Monroe Jul 06, 2016 20:05
[2016-07-06] MEDS: **NOTE PATIENT COMMENT** MISC XX SCH (20:09)
[2016-07-06] MEDS: SERTRALINE 100 MG TAB PO SCH (21:26)
[2016-07-06] MEDS: MELOXICAM (MOBIC) 7.5 MG TAB PO SCH (21:26)
[2016-07-06] MEDS: PRAZOSIN 1 MG CAP PO SCH (21:26)
[2016-07-06 22:30] VITALS: BP 180/110
[2016-07-07 00:05] VITALS: BP 160/110
[2016-07-07] MEDS ORDERED: amLODIPine 5 MG TAB PO ONE (00:15)
--- NOTE | 2016-07-07 01:02 | EDDOCDS ---
Physician Documentation [facility] Name: Pablito Schneider Age: 46 yrs Sex: Male : 1970 Arrival Date: 07/04/2016 Time: 19:03 Bed BHU1 Private MD: Yani CASAS Disposition: 07/04/16 21:13 Hospitalization ordered by Juan Gomes for Inpatient Admission. Preliminary diagnosis are Suicidal ideations, Major depressive disorder, recurrent. - Bed requested for Admit. - Status is Inpatient Admission. jeffrey - Condition is Stable. - Problem is an acute exacerbation. - Symptoms are unchanged. Historical: - Allergies: Motrinstomach bleeds; - Home Meds: 1. Minipress 5 mg Oral cap 1 cap 2 times per day 2. Zoloft 100 mg Oral tab 1 tab once daily - PMHx: TBI; Hypertension; - PSHx: foot surgery; - Social history: Smoking status: Patient states was never smoker of tobacco. Preferred Language: Telugu. - : The pt / caregiver states he / she is not on anticoagulants. Home medication list is obtained from the patient. - Exposure Risk Screening:: None identified. Vital Signs: 07/04 19:05 BP 147 / 97; Pulse 99; Resp 16; Temp 98.2(O); Pulse Ox 99% ; Weight 83.91 kg / 184.99 cmb lbs; Height 5 ft. 5 in. (165.10 cm); Pain 6/10; 19:05 Body Mass Index 30.79 (83.91 kg, 165.10 cm) cmb MDM: 19:44 Consult PFS/PSA/Clinical Account Liaison ordered. ke 19:44 Consult PFS/PSA/Clinical Account Liaison: Patient's case requires discussion with on-call Psychiatrist ordered. 19:44 PSA/PFS to call Nursing Aerodynamics Teacher, to enter patient data on [place] Safe Act if patient ke involuntarily admitted or transferred for SI or HI ordered. 19:44 Confirm accurate psychiatric medication list and times of last dosage ordered. ke 19:44 Detain Pt Until Medically/PFS Cleared ordered. ke 19:45 Acetaminophen Level Ordered. EDMS 19:45 Basic Metabolic Profile Ordered. EDMS 19:45 Complete Blood Count Ordered. EDMS 19:45 Drug Eval Toxicology ED Only Ordered. EDMS 19:45 Ethyl Alcohol (ethanol) Ordered. EDMS 19:45 Liver Profile Ordered. EDMS 19:45 Salicylate Level Ordered. EDMS 19:45 Thyroid Stimulating Hormone Ordered. EDMS 21:10 Acetaminophen Level Reviewed. ke 21:10 Basic Metabolic Profile Reviewed. ke 21:10 Complete Blood Count Reviewed. ke 21:10 Salicylate Level Reviewed. ke 21:10 Drug Eval Toxicology ED Only Reviewed. ke 21:10 Ethyl Alcohol (ethanol) Reviewed. ke 21:10 Liver Profile Reviewed. ke 21:10 Thyroid Stimulating Hormone Reviewed. ke 21:13 BED REQUEST+ADM ordered. EDMS 22:01 Financial registration complete. gjb 23:06 Admit to IMHU: ordered. EDMS 23:06 REGULAR DIET ordered. EDMS 23:25 [facility] Payment Agreement was scanned into [email or web address] and attached to record. gjb 23:27 [facility] Legal paperwork was scanned into [email or web address] and attached to record. jfb 23:27 Consult PFS/PSA/Clinical Account Liaison complete. jfb 23:27 Consult PFS/PSA/Clinical Account Liaison: Patient's case requires discussion with on-call jfb Psychiatrist complete. 23:27 PSA/PFS to call Nursing Aerodynamics Teacher, to enter patient data [place] Safe Act if patient jfb involuntarily admitted or transferred for SI or HI complete. 07/05 10:04 T-Sheet-- Draft Copy was scanned into [email or web address] and attached to record. gb Signatures: Dispatcher [employer] EDDE Lily Ji, RN RN Crissy Phillips, Reg Reg gb Antwan Brown, PRODUCTION POSTING CLERK PRODUCTION POSTING CLERK Jessie Romero, PSA PSA jfb Julia Wolf RN RN [id number] Janae Fernandez The chart was reviewed and I authenticate all verbal orders and agree with the evaluation and treatment provided.Attachments: 07/04 23:25 [facility] Payment Agreement gjb 07/05 10:04 T-Sheet-- Draft Copy gb Chart Complete MTDD
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
--- NOTE | 2016-07-07 01:02 | EDDOCDS ---
Physician Documentation [facility] Name: Pablito Schneider Age: 46 yrs Sex: Male : 1970 Arrival Date: 07/04/2016 Time: 19:03 Bed BHU1 Private MD: Yani CASAS Disposition: 07/04/16 21:13 Hospitalization ordered by Juan Gomes for Inpatient Admission. Preliminary diagnosis are Suicidal ideations, Major depressive disorder, recurrent. - Bed requested for Admit. - Status is Inpatient Admission. jeffrey - Condition is Stable. - Problem is an acute exacerbation. - Symptoms are unchanged. Historical: - Allergies: Motrinstomach bleeds; - Home Meds: 1. Minipress 5 mg Oral cap 1 cap 2 times per day 2. Zoloft 100 mg Oral tab 1 tab once daily - PMHx: TBI; Hypertension; - PSHx: foot surgery; - Social history: Smoking status: Patient states was never smoker of tobacco. Preferred Language: Turkish. - : The pt / caregiver states he / she is not on anticoagulants. Home medication list is obtained from the patient. - Exposure Risk Screening:: None identified. Vital Signs: 07/04 19:05 BP 147 / 97; Pulse 99; Resp 16; Temp 98.2(O); Pulse Ox 99% ; Weight 83.91 kg / 184.99 cmb lbs; Height 5 ft. 5 in. (165.10 cm); Pain 6/10; 19:05 Body Mass Index 30.79 (83.91 kg, 165.10 cm) cmb MDM: 19:44 Consult PFS/PSA/Tank Hoop Bender ordered. ke 19:44 Consult PFS/PSA/Tank Hoop Bender: Patient's case requires discussion with on-call Psychiatrist ordered. 19:44 PSA/PFS to call Nursing Cashier [employer], to enter patient data on [place] Safe Act if patient ke involuntarily admitted or transferred for SI or HI ordered. 19:44 Confirm accurate psychiatric medication list and times of last dosage ordered. ke 19:44 Detain Pt Until Medically/PFS Cleared ordered. ke 19:45 Acetaminophen Level Ordered. EDMS 19:45 Basic Metabolic Profile Ordered. EDMS 19:45 Complete Blood Count Ordered. EDMS 19:45 Drug Eval Toxicology ED Only Ordered. EDMS 19:45 Ethyl Alcohol (ethanol) Ordered. EDMS 19:45 Liver Profile Ordered. EDMS 19:45 Salicylate Level Ordered. EDMS 19:45 Thyroid Stimulating Hormone Ordered. EDMS 21:10 Acetaminophen Level Reviewed. ke 21:10 Basic Metabolic Profile Reviewed. ke 21:10 Complete Blood Count Reviewed. ke 21:10 Salicylate Level Reviewed. ke 21:10 Drug Eval Toxicology ED Only Reviewed. ke 21:10 Ethyl Alcohol (ethanol) Reviewed. ke 21:10 Liver Profile Reviewed. ke 21:10 Thyroid Stimulating Hormone Reviewed. ke 21:13 BED REQUEST+ADM ordered. EDMS 22:01 Financial registration complete. gjb 23:06 Admit to IMHU: ordered. EDMS 23:06 REGULAR DIET ordered. EDMS 23:25 [facility] Payment Agreement was scanned into [employer] and attached to record. gjb 23:27 [facility] Legal paperwork was scanned into [employer] and attached to record. jfb 23:27 Consult PFS/PSA/Tank Hoop Bender complete. jfb 23:27 Consult PFS/PSA/Tank Hoop Bender: Patient's case requires discussion with on-call jfb Psychiatrist complete. 23:27 PSA/PFS to call Nursing Cashier [employer], to enter patient data [place] Safe [place] if patient jfb involuntarily admitted or transferred for SI or HI complete. 07/05 10:04 T-Sheet-- Draft Copy was scanned into [employer] and attached to record. gb Signatures: Dispatcher [employer] EDIL Lily Ji, RN RN Crissy Phillips, Reg Reg gb Antwan Brown, COSMETIC CONSULTANT COSMETIC CONSULTANT Jessie Romero, PSA PSA jfb Julia Wolf RN RN sls1 Janae Fernandez The chart was reviewed and I authenticate all verbal orders and agree with the evaluation and treatment provided.Attachments: 07/04 23:25 [facility] Payment Agreement gjb 07/05 10:04 T-Sheet-- Draft Copy gb Chart Complete MTDD
[2016-07-07 02:02] VITALS: BP 132/88
[2016-07-07 06:47] VITALS: BP 140/99
[2016-07-07] MEDS: OMEPRAZOLE 20 MG CAP PO SCH (09:27)
[2016-07-07] MEDS: LOSARTAN 25 MG TAB PO SCH (09:28)
[2016-07-07] MEDS: LIDOCAINE 5% (LIDODERM) PATCH TD SCH (09:29)
[2016-07-07 09:32] VITALS: BP 140/90
[2016-07-07 19:06] VITALS: BP 140/95
[2016-07-07] MEDS ORDERED: LOSARTAN 25 MG TAB PO ONE (19:30)
[2016-07-07] MEDS: ACETAMINOPHEN TAB 650MG DOSE (2X325MG) PO PRN (19:34)
[2016-07-07] MEDS: **NOTE PATIENT COMMENT** MISC XX SCH (19:35)
--- NOTE | 2016-07-07 20:25 | IPNPDOC ---
[facility] Progress Note Progress Note DATE OF SERVICE: 07/07/16 HISTORY: Patient was seen today to evaluate treatment progress on the inpatient unit. Patient has been visible in lounge and attending groups, isolates to room at other times. Patient today denies symptoms of anxiety and depression, denies suicidal and homicidal ideation, indicates he last experienced passive SI symptoms the night before last, denies having plan or intent to harm self at time of symptoms. Patient denies audiovisual hallucinations, denies urge to engage in self-injurious behavior. Patient states he slept better with trazodone dose increase but woke up 1 during night, denies nightmares symptoms. Patient indicated during yesterday's interaction that Zoloft was working well and tells program writer again today that Zoloft is working well, clearly indicates to program writer he does not feel Zoloft dose needs to be increased. This is contrary to report patient gave to behavioral health worker, apparently indicating that he feels Zoloft is ineffective. Patient further denied medication side effects other than occasional a.m. dizziness which she attributes to prazosin and indicates side effect is manageable. Patient denies symptoms of anger, irritability, or aggression. Patient further denies challenges with appetite, indicates energy level is normal, continues to experience challenges with concentration and focus. Patient presents with no signs of acute distress. Patient is active in the [facility], has reported history of TBI from 2007 and is preparing rettire from [employer] in 3 months. VITAL SIGNS: Please see below. NEW TEST RESULTS: Labs unremarkable on admission with exception of low Hgb and HCT, PA is monitoring. UDS negative on admission. Echo completed date of entry, results not yet available in [employer] CURRENT MEDICATIONS: See below. 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 Patient is pleasant, generally cooperative though continues to appear evasive at times, exhibits adequate personal hygiene, and appears stated age, eye contact is improved today. Speech: Is less slow today, low volume at times, coherent, unspontaneous Thought processes: Clear, linear, generally goal-directed Rate of thoughts: Delayed Thought content: Logical. Abstract reasoning: Limited Associations: Intact Abnormal or psychotic thoughts: denies hallucinations, Delusions, Preoccupation with violence, Homicidal or suicidal ideation, and Obsessions. Judgment: Limited Insight: Limited Oriented to: Time, place and person. Recent and Remote Memory: Appears intact, some delay. Attention Span and Concentration: Limited. Language: Normal. Fund of knowledge: Adequate Mood: "I'm ok." No mood lability noted, no agitation or irritability Affect: Blunted, congruent with affect. 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 Patient appears somewhat less depressed and anxious today with reduced delay in responses. Patient again is slower to respond to questions asked which directly relates to [employer] and plans for exiting. Patient provides conflicting information regarding medication effectiveness and his emotional status. When asked about plans for care home, patient became distant, nonresponsive, stares into space. However, when subject is changed to patient's stated desire for discharge in time for carpal tunnel surgery, patient becomes responsive and engageable. Patient informs program writer echo scheduled for yester did not occur and reminds program writer he is scheduled for surgery on Sunday. Patient is requesting dose increase to trazodone in effort to reduce residual maintenance issues, denies problems related to latency. Will increase trazodone to 100 mg po hs PRN insomnia. Will also continue to monitor for need to adjust Zoloft dose. Patient has been observed to active on unit, denies current suicidal and homicidal ideation, is able to effectively engage in safety planning process, and verbalizes awareness of how to access supportive services on the unit if needed. Patient has been encouraged to continue to participate in unit programming to facilitate the development of coping mechanisms. Patient verbalizes awareness of and agreement with discharge plan to return to [facility]. Addendum: Per health care coordinator who spoke with [facility] dental detail representative, Sunday's carpal tunnel surgery is elective and has been canceled by [facility], and [facility] has no knowledge of Echo appointment. Furthermore, [facility] resource was unable to confirm that patient has history of TBI. Patient's [facility] social media campaign manager is not working date of entry; communication will need to occur Sunday with U social media campaign manager in order to confirm patient's status and discharge plan. MANAGEMENT PLAN: Increase trazodone to 100 mg po hs PRN insomnia, continue Zoloft 100 mg po q hs and prazosin 5 mg po q hs. Continue to monitor need for medication changes/dosing adjustment Maintain safety precautions Patient to attend groups and participate in unit programming to develop coping strategies Engage patient in discharge planning process and arrange meeting with command to evaluate safe discharge planning when appropriate Patient to return to [facility] and outpatient behavioral health at [facility] for psychotherapy, recommend change from TeleMed management to [id number] medication management services Patient to follow up with [facility] PCM upon discharge Vital Signs/I&O Vital Signs Date Time Temp Pulse Resp B/P Pulse Ox O2 Delivery O2 Flow Rate FiO2 07/07/16 19:33 140/95 07/07/16 19:06 98.5 103 16 Current Medications Current Medications Acetaminophen (Tylenol) 650 mg Q6HP PRN PO HEADACHE or DISCOMFORT Last administered on 07/07/16 19:34; Start 07/04/16 at 23:00; Stop 08/03/16 at 22:59 Al Hydrox/Mg Hydrox/Simethicone (Mylanta) 30 ml Q4HP PRN PO HEARTBURN/ INDIGESTION; Start 07/04/16 at 23:00; Stop 08/03/16 at 22:59 Amlodipine Besylate (Norvasc) 5 mg ONCE ONCE PO Last administered on 00:19; Start 07/07/16 at 00:15; Stop 07/07/16 at 00:16; Status DC Home Med (Med Rec Complete!) ASDIRECTED XX ; Start 07/04/16 at 22:00; Stop at 00:14; Status DC Lidocaine (Lidoderm Patch) 1 patch QAM TD Last administered on 07/07/16 09:29 ; Start 07/05/16 at 09:00; Stop 08/04/16 at 08:59 Lidocaine (Lidoderm Patch) 1 patch QHS TD ; Start 07/04/16 at 21:00; Stop at 04:08; Status DC Loratadine (Claritin) 10 mg DAILYPRN PRN PO ALLERGIES; Start 07/05/16 at 00:30 ; Stop 08/04/16 at 00:29 Losartan Potassium (Cozaar) 25 mg DAILY PO Last administered on 07/07/16 09:28 ; Start 07/05/16 at 09:00; Stop 07/07/16 at 19:18; Status DC Losartan Potassium (Cozaar) 25 mg ONCE ONCE PO Last administered on 07/07/16 19:33; Start 07/07/16 at 19:30; Stop 07/07/16 at 19:31; Status DC Losartan Potassium (Cozaar) 50 mg QAM PO ; Start 07/08/16 at 09:00; Stop at 08:59 Magnesium Hydroxide (Milk Of Magnesia) 30 ml DAILYPRN PRN PO CONSTIPATION; Start 07/04/16 at 23:00; Stop 08/03/16 at 22:59 Meloxicam (Mobic) 7.5 mg QHS PO Last administered on 07/06/16 21:26; Start at 21:00; Stop 08/03/16 at 20:59 Non-Formulary Medication ( See Comment Field Below ) REMOVE LIDODERM PATCH DAILY@21 XX Last administered on 07/07/16 19:35; Start 07/05/16 at 21:00; Stop 08/04/16 at 20:59 Omeprazole (PriLOSEC) 20 mg DAILY PO Last administered on 07/07/16 09:27; Start 07/05/16 at 09:00; Stop 08/04/16 at 08:59 Prazosin HCl (Minipress) 5 mg BID PO ; Start 07/05/16 at 09:00; Stop 07/05/16 at 09:00; Status DC Prazosin HCl (Minipress) 5 mg QHS PO Last administered on 07/06/16 21:26; Start 07/04/16 at 21:00; Stop 08/03/16 at 20:59 Rizatriptan Benzoate (Maxalt) 10 mg Q2HP PRN PO MIGRAINE; Start 07/05/16 at 00: 30; Stop 08/04/16 at 00:29 Sertraline HCl (Zoloft) 100 mg DAILY@21 PO Last administered on 07/06/16 21:26 ; Start 07/04/16 at 21:00; Stop 08/03/16 at 20:59 Trazodone HCl (Desyrel) 50 mg QHSP PRN PO INSOMNIA Last administered on 02:06; Start 1/17/17 at 23:00; Stop 07/06/16 at 19:35; Status DC Trazodone HCl (Desyrel) 75 mg QHSP PRN PO INSOMNIA; Start 07/06/16 at 19:30; Stop 08/05/16 at 19:29 Allergies Coded Allergies: Ibuprofen (Verified Allergy, Unknown, 02/22/16) Giovana Monroe Jul 07, 2016 20:25
[2016-07-07] MEDS: MELOXICAM (MOBIC) 7.5 MG TAB PO SCH (21:31)
[2016-07-07] MEDS: PRAZOSIN 1 MG CAP PO SCH (21:31)
[2016-07-07] MEDS: SERTRALINE 100 MG TAB PO SCH (21:32)
[2016-07-08] MEDS: traZODone 100 MG TAB PO PRN ×2 (00:14→22:18)
[2016-07-08 06:31] VITALS: BP 130/88
[2016-07-08] MEDS: OMEPRAZOLE 20 MG CAP PO SCH (08:17)
[2016-07-08] MEDS: LOSARTAN 50 MG TAB PO SCH (08:18)
[2016-07-08] MEDS: LIDOCAINE 5% (LIDODERM) PATCH TD SCH (08:18)
[2016-07-08 18:00] VITALS: BP 128/73
[2016-07-08] MEDS: **NOTE PATIENT COMMENT** MISC XX SCH (21:00)
[2016-07-08 22:00] VITALS: BP 134/86
[2016-07-08] MEDS: MELOXICAM (MOBIC) 7.5 MG TAB PO SCH (22:17)
[2016-07-08] MEDS: PRAZOSIN 1 MG CAP PO SCH (22:18)
[2016-07-08] MEDS: SERTRALINE 100 MG TAB PO SCH (22:18)
[2016-07-09 06:00] VITALS: BP 122/80
--- NOTE | 2016-07-09 08:44 | IPN ---
DATE OF SERVICE: 07/08/2016 MEDICATIONS: - trazodone 100 mg by mouth at bedtime as needed insomnia - sertraline 100 mg by mouth every evening - prazosin 5 mg by mouth at bedtime SUBJECTIVE: "I'm feeling a little better." OBJECTIVE: Patient continues depressed and was improved from admission. He is denying any side effects from the medications. He is denying any problems with his treatment and would like to discuss discharge issues with the primary team. MENTAL STATUS EXAMINATION: The patient is dressed in [facility]. The patient is calm and cooperative during the interview. He has fair eye contact. Speech is slow and monotone. Mood is depressed and anxious. Affect is congruent with mood. No delusions or hallucinations. Short term and fdc memory are fair. The patient is fully oriented. are intact. Thinking is logical. Thought content is appropriate. Patient s able to contract for safety in the unit. Insight and judgment is limited. ASSESSMENT: 1. Major depressive disorder. 2. Posttraumatic stress disorder (PTSD). 3. Traumatic brain injury (TBI). PLAN: 1. Continue with trazodone 100 mg by mouth at bedtime as needed for insomnia. 2. Continue with sertraline 100 mg by mouth every evening. 3. Continue with prazosin 5 mg by mouth at bedtime. 4. Continue medication management, individual and group therapy.
[2016-07-09] MEDS: LOSARTAN 50 MG TAB PO SCH (08:51)
[2016-07-09] MEDS: OMEPRAZOLE 20 MG CAP PO SCH (08:51)
[2016-07-09] MEDS: LIDOCAINE 5% (LIDODERM) PATCH TD SCH (08:52)
[2016-07-09 09:13] VITALS: BP 127/90
[2016-07-09] MEDS: ACETAMINOPHEN TAB 650MG DOSE (2X325MG) PO PRN (14:51)
[2016-07-09 18:00] VITALS: BP 123/70
[2016-07-09] MEDS: **NOTE PATIENT COMMENT** MISC XX SCH (20:33)
--- NOTE | 2016-07-09 20:49 | ECGEPIP ---
Stationary ECG Study [facility] Test Date: 2016-07-09 Pat Name: WILFREDO ARAUJO Department: Room: [place] [address] Gender: M Visual Basic .Net Developer: NORTH : 1970 Requested By: SADIA DOMINGUEZ Order Number: [id number] Reading MD: Gunner Tan Measurements Intervals [place] Rate: 87 P: 34 ID: 104 QRS: 67 QRSD: 93 T: 3 QT: 369 QTc: 446 Interpretive Statements Normal sinus rhythm with short ID interval Nonspecific T wave abnormality Comparison tracing not on file Electronically Signed On 07-09-2016 20:49:20 EST by Gunner Tan
[2016-07-09] MEDS: MELOXICAM (MOBIC) 7.5 MG TAB PO SCH (21:26)
[2016-07-09] MEDS: SERTRALINE 100 MG TAB PO SCH (21:26)
[2016-07-09] MEDS: PRAZOSIN 1 MG CAP PO SCH (21:27)
[2016-07-09 21:28] VITALS: BP 142/90
[2016-07-09] MEDS: traZODone 100 MG TAB PO PRN (23:09)
[2016-07-10 06:34] VITALS: BP 157/90
[2016-07-10] MEDS: OMEPRAZOLE 20 MG CAP PO SCH (08:39)
[2016-07-10] MEDS: LIDOCAINE 5% (LIDODERM) PATCH TD SCH (08:40)
[2016-07-10] MEDS: LOSARTAN 50 MG TAB PO SCH (08:40)
[2016-07-10 18:00] VITALS: BP 119/58
[2016-07-10 20:00] VITALS: BP 138/98
[2016-07-10] MEDS: MELOXICAM (MOBIC) 7.5 MG TAB PO SCH (21:43)
[2016-07-10] MEDS: PRAZOSIN 1 MG CAP PO SCH (21:44)
[2016-07-10] MEDS: SERTRALINE 100 MG TAB PO SCH (21:44)
[2016-07-10] MEDS: **NOTE PATIENT COMMENT** MISC XX SCH (21:56)
[2016-07-10] MEDS: traZODone 100 MG TAB PO PRN (23:06)
[2016-07-11 06:25] VITALS: BP 137/66
[2016-07-11] MEDS: OMEPRAZOLE 20 MG CAP PO SCH (09:21)
[2016-07-11] MEDS: LOSARTAN 50 MG TAB PO SCH (09:21)
[2016-07-11] MEDS: SERTRALINE 100 MG TAB PO SCH (09:21)
[2016-07-11] MEDS: LIDOCAINE 5% (LIDODERM) PATCH TD SCH (09:21)
[2016-07-11 12:21] VITALS: BP 143/85
--- NOTE | 2016-07-11 17:18 | IPNPDOC ---
[facility] [place] Progress Note Progress Note DATE: 07/11/16 HISTORY: Patient was seen today to evaluate treatment progress on the inpatient unit. Patient appears brighter today, readily sits up in bed to engage with short story writer, is able to articulate feelings and treatment progress, indicates another change was made to sleeping aid over weekend which seems to be helping. Patient speaks openly today about marital tension he has been experiencing, indicates he feels his no longer loves him, but notes he feels she has supportive. Patient reiterates anxiety related to preparing to retire from [employer] in feeling as if he has no plan in place. Patient remains visible in lounge and attending groups, isolates to room at other times. Patient today rates anxiety levels 6/10, depression 5/10, denies suicidal and homicidal ideation, denies audiovisual hallucinations, and denies urge to engage in self-injurious behavior. Patient endorses passive suicidal ideation, last experienced symptoms last night, denies having plan or intent to harm self at time noting, "I was just feeling like a haven't accomplished anything." Patient states sleep is improved reports experiencing one nightmare last night which he describes as " me just wondering what is happening and feeling like I haven't accomplished anything." Patient denies audiovisual hallucinations, denies urge to engage in self-injurious behavior. She indicates she slept better with trazodone dose increase, denies nightmares symptoms. Patient continues to provide conflicting reports as to Zoloft effectiveness, denies need for dosing adjustment. Patient denies symptoms of anger, irritability, or aggression. Patient further denies challenges with appetite, indicates energy level is normal, continues to experience challenges with concentration and focus. Patient presents with no signs of acute distress. Patient is active in the [facility], has reported history of TBI from 2007 (which [facility] is currently unable to corroborate) and is preparing retire from [employer] in 3 months. VITAL SIGNS: Please see below. NEW TEST RESULTS: Labs unremarkable on admission with exception of low Hgb and HCT, PA is monitoring. UDS negative on admission. Echo not yet completed, EKG completed 07/09/16 - Normal sinus rhythm with short [place] interval. Nonspecific T wave abnormality. Comparison tracing not on file CURRENT MEDICATIONS: See below. 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 Speech: Is less slow today, low volume at times, coherent, unspontaneous Thought processes: Clear, linear, generally goal-directed Rate of thoughts: Less delay today, generally within normal limits Thought content: Logical. Abstract reasoning: Appears within normal limits Associations: Intact Abnormal or psychotic thoughts: denies hallucinations, Delusions, Preoccupation with violence, Homicidal or suicidal ideation, and Obsessions. Judgment: Limited Insight: Limited Oriented to: Time, place and person. Recent and Remote Memory: Appears intact, no delay today. Attention Span and Concentration: Limited. Language: Normal. Fund of knowledge: Adequate Mood: "Okay." No mood lability noted, no agitation or irritability Affect: Constricted, brighter than last interaction, brightens 1 today, congruent with affect. 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 Patient appears less depressed and is able to express himself more clearly today, with reduced delay in responses. Patient is able to describe in more detail the conflicts he is experiencing related to exiting the [employer] and associated symptoms of anxiety and depression. Patient also talks with short story writer about marital tension, however, indicates he and love each other and the plan remains for him to return home to [place] to live with his family. Patient had EKG over weekend reportedly due to experiencing tightness in chest, denies all current cardiac related symptoms including shortness of breath, chest pain, dizziness, headache, palpitations. Provider over weekend increase patient's trazodone for sleep and prazosin to address ongoing nightmare symptoms. Trazodone is now prescribed for 150 mg po hs PRN insomnia. Will continue to monitor for need to adjust Zoloft dose. Patient remains active and visible on unit, denies current suicidal and homicidal ideation, is able to effectively engage in safety planning process, and verbalizes awareness of how to access supportive services on the unit if needed. Patient has been encouraged to continue to participate in unit programming to facilitate the development of coping mechanisms. Patient verbalizes awareness of and agreement with discharge plan to return to [facility]. Contact has been made with Command and efforts have been made by public information coordinator to contact U social work program coordinator to discuss discharge planning and to confirm that patient has PTSD and TBI, determine status of Echo, and to discuss discharge planning. Critical access hospital closed today due to document whether. MANAGEMENT PLAN: Change Trazodone to 150 mg po hs PRN insomnia, continue Zoloft 100 mg po q hs, continue prazosin 6 mg po q hs. Continue to monitor need for medication changes/dosing adjustment Maintain safety precautions Patient to attend groups and participate in unit programming to develop coping strategies Engage patient in discharge planning process and arrange meeting with command to evaluate safe discharge planning when appropriate Patient to return to [facility] and outpatient behavioral health at [facility] for psychotherapy, recommend change from TeleMed management to [id number] medication management services Patient to follow up with [facility] PCM upon discharge Vital Signs Vital Signs Date Time Temp Pulse Resp B/P Pulse Ox O2 Delivery O2 Flow Rate FiO2 07/11/16 12:21 97.1 98 16 143/85 Current Medications Current Medications Acetaminophen (Tylenol) 650 mg Q6HP PRN PO HEADACHE or DISCOMFORT Last administered on 07/09/16 14:51; Start 07/04/16 at 23:00; Stop 08/03/16 at 22:59 Al Hydrox/Mg Hydrox/Simethicone (Mylanta) 30 ml Q4HP PRN PO HEARTBURN/ INDIGESTION; Start 07/04/16 at 23:00; Stop 08/03/16 at 22:59 Home Med (Med Rec Complete!) ASDIRECTED XX ; Start 07/04/16 at 22:00; Stop at 00:14; Status DC Lidocaine (Lidoderm Patch) 1 patch QAM TD Last administered on 07/11/16 09:21 ; Start 07/05/16 at 09:00; Stop 08/04/16 at 08:59 Lidocaine (Lidoderm Patch) 1 patch QHS TD ; Start 07/04/16 at 21:00; Stop at 04:08; Status DC Loratadine (Claritin) 10 mg DAILYPRN PRN PO ALLERGIES; Start 07/05/16 at 00:30 ; Stop 08/04/16 at 00:29 Losartan Potassium (Cozaar) 25 mg DAILY PO Last administered on 07/07/16 09:28 ; Start 07/05/16 at 09:00; Stop 07/07/16 at 19:18; Status DC Losartan Potassium (Cozaar) 50 mg QAM PO Last administered on 07/11/16 09:21; Start 07/08/16 at 09:00; Stop 08/07/16 at 08:59 Magnesium Hydroxide (Milk Of Magnesia) 30 ml DAILYPRN PRN PO CONSTIPATION; Start 07/04/16 at 23:00; Stop 08/03/16 at 22:59 Meloxicam (Mobic) 7.5 mg QHS PO Last administered on 07/10/16 21:43; Start at 21:00; Stop 08/03/16 at 20:59 Non-Formulary Medication ( See Comment Field Below ) REMOVE LIDODERM PATCH DAILY@21 XX Last administered on 07/10/16 21:56; Start 07/05/16 at 21:00; Stop 08/04/16 at 20:59 Omeprazole (PriLOSEC) 20 mg DAILY PO Last administered on 07/11/16 09:21; Start 07/05/16 at 09:00; Stop 08/04/16 at 08:59 Prazosin HCl (Minipress) 5 mg BID PO ; Start 07/05/16 at 09:00; Stop 07/05/16 at 09:00; Status DC Prazosin HCl (Minipress) 5 mg QHS PO Last administered on 07/10/16 21:44; Start 07/04/16 at 21:00; Stop 07/11/16 at 01:13; Status DC Prazosin HCl (Minipress) 6 mg QHS PO ; Start 07/11/16 at 21:00; Stop 08/10/16 at 20:59 Rizatriptan Benzoate (Maxalt) 10 mg Q2HP PRN PO MIGRAINE Last administered on 18:09; Start 07/05/16 at 00:30; Stop 08/04/16 at 00:29 Sertraline HCl (Zoloft) 100 mg DAILY PO Last administered on 07/11/16 09:21; Start 07/11/16 at 09:00; Stop 08/10/16 at 08:59 Sertraline HCl (Zoloft) 100 mg DAILY@21 PO Last administered on 07/10/16 21:44 ; Start 07/04/16 at 21:00; Stop 07/11/16 at 01:17; Status DC Trazodone HCl (Desyrel) 50 mg QHSP PRN PO INSOMNIA Last administered on 02:06; Start 07/04/16 at 23:00; Stop 07/06/16 at 19:35; Status DC Trazodone HCl (Desyrel) 75 mg QHSP PRN PO INSOMNIA; Start 07/06/16 at 19:30; Stop 07/07/16 at 20:16; Status DC Trazodone HCl (Desyrel) 100 mg QHSP PRN PO INSOMNIA Last administered on 23:06; Start 07/07/16 at 20:15; Stop 07/11/16 at 17:14; Status DC Trazodone HCl (Desyrel) 150 mg QHS PRN PO INSOMNIA; Start 07/11/16 at 21:00; Stop 08/10/16 at 20:59 Trazodone HCl (Desyrel) 200 mg QHS PO ; Start 07/11/16 at 21:00; Stop 07/11/16 at 21:00; Status DC Allergies Coded Allergies: Ibuprofen (Verified Allergy, Unknown, 02/22/16) Giovana Monroe Jul 11, 2016 17:18 Current Medications Current Medications Acetaminophen (Tylenol) 650 mg Q6HP PRN PO HEADACHE or DISCOMFORT Last administered on 07/09/16 14:51; Start 07/04/16 at 23:00; Stop 08/03/16 at 22:59 Al Hydrox/Mg Hydrox/Simethicone (Mylanta) 30 ml Q4HP PRN PO HEARTBURN/ INDIGESTION; Start 07/04/16 at 23:00; Stop 08/03/16 at 22:59 Home Med (Med Rec Complete!) ASDIRECTED XX ; Start 07/04/16 at 22:00; Stop at 00:14; Status DC Lidocaine (Lidoderm Patch) 1 patch QAM TD Last administered on 07/11/16 09:21 ; Start 07/05/16 at 09:00; Stop 08/04/16 at 08:59 Lidocaine (Lidoderm Patch) 1 patch QHS TD ; Start 07/04/16 at 21:00; Stop at 04:08; Status DC Loratadine (Claritin) 10 mg DAILYPRN PRN PO ALLERGIES; Start 07/05/16 at 00:30 ; Stop 08/04/16 at 00:29 Losartan Potassium (Cozaar) 25 mg DAILY PO Last administered on 07/07/16 09:28 ; Start 07/05/16 at 09:00; Stop 07/07/16 at 19:18; Status DC Losartan Potassium (Cozaar) 50 mg QAM PO Last administered on 07/11/16 09:21; Start 07/08/16 at 09:00; Stop 08/07/16 at 08:59 Magnesium Hydroxide (Milk Of Magnesia) 30 ml DAILYPRN PRN PO CONSTIPATION; Start 07/04/16 at 23:00; Stop 08/03/16 at 22:59 Meloxicam (Mobic) 7.5 mg QHS PO Last administered on 07/10/16 21:43; Start at 21:00; Stop 08/03/16 at 20:59 Non-Formulary Medication ( See Comment Field Below ) REMOVE LIDODERM PATCH DAILY@21 XX Last administered on 07/10/16 21:56; Start 07/05/16 at 21:00; Stop 08/04/16 at 20:59 Omeprazole (PriLOSEC) 20 mg DAILY PO Last administered on 07/11/16 09:21; Start 07/05/16 at 09:00; Stop 08/04/16 at 08:59 Prazosin HCl (Minipress) 5 mg BID PO ; Start 07/05/16 at 09:00; Stop 07/05/16 at 09:00; Status DC Prazosin HCl (Minipress) 5 mg QHS PO Last administered on 07/10/16 21:44; Start 07/04/16 at 21:00; Stop 07/11/16 at 01:13; Status DC Prazosin HCl (Minipress) 6 mg QHS PO ; Start 07/11/16 at 21:00; Stop 08/10/16 at 20:59 Rizatriptan Benzoate (Maxalt) 10 mg Q2HP PRN PO MIGRAINE Last administered on 18:09; Start 07/05/16 at 00:30; Stop 08/04/16 at 00:29 Sertraline HCl (Zoloft) 100 mg DAILY PO Last administered on 07/11/16 09:21; Start 07/11/16 at 09:00; Stop 08/10/16 at 08:59 Sertraline HCl (Zoloft) 100 mg DAILY@21 PO Last administered on 07/10/16 21:44 ; Start 07/04/16 at 21:00; Stop 07/11/16 at 01:17; Status DC Trazodone HCl (Desyrel) 50 mg QHSP PRN PO INSOMNIA Last administered on 02:06; Start 07/04/16 at 23:00; Stop 07/06/16 at 19:35; Status DC Trazodone HCl (Desyrel) 75 mg QHSP PRN PO INSOMNIA; Start 07/06/16 at 19:30; Stop 07/07/16 at 20:16; Status DC Trazodone HCl (Desyrel) 100 mg QHSP PRN PO INSOMNIA Last administered on 23:06; Start 07/07/16 at 20:15; Stop 07/11/16 at 17:14; Status DC Trazodone HCl (Desyrel) 150 mg QHS PRN PO INSOMNIA; Start 07/11/16 at 21:00; Stop 08/10/16 at 20:59 Trazodone HCl (Desyrel) 200 mg QHS PO ; Start 07/11/16 at 21:00; Stop 07/11/16 at 21:00; Status DC Allergies Coded Allergies: Ibuprofen (Verified Allergy, Unknown, 02/22/16) Giovana Monroe Jul 11, 2016 17:18
[2016-07-11 18:00] VITALS: BP 124/73
[2016-07-11] MEDS: ACETAMINOPHEN TAB 650MG DOSE (2X325MG) PO PRN (18:04)
[2016-07-11] MEDS ORDERED: traZODone 100 MG TAB PO SCH (21:00)
[2016-07-11] MEDS: **NOTE PATIENT COMMENT** MISC XX SCH (21:35)
[2016-07-11 21:39] VITALS: BP 160/90
[2016-07-11] MEDS: MELOXICAM (MOBIC) 7.5 MG TAB PO SCH (21:39)
[2016-07-11] MEDS: PRAZOSIN 1 MG CAP PO SCH (21:40)
[2016-07-11] MEDS: traZODone 50 MG TAB PO PRN (23:04)
[2016-07-12 06:29] VITALS: BP 145/75
[2016-07-12] MEDS: LIDOCAINE 5% (LIDODERM) PATCH TD SCH (08:43)
[2016-07-12] MEDS: OMEPRAZOLE 20 MG CAP PO SCH (08:44)
[2016-07-12] MEDS: SERTRALINE 100 MG TAB PO SCH (08:44)
[2016-07-12] MEDS: LOSARTAN 50 MG TAB PO SCH (08:44)
[2016-07-12 11:12] VITALS: BP 134/84
[2016-07-12 11:13] VITALS: BP 132/82
--- NOTE | 2016-07-12 11:52 | IPNPDOC ---
Assessment/Plan Date Seen The patient was seen on 07/12/16. Problems Problems: (1) Hypertension Status: Acute Problem Text: * Continue current Cozaar 50 mg daily. * Update BMP. * As noted since Cozaar was adjusted 07/08 blood pressure trends have been 119- 140/58-94. * Isolated 160/90, 157/90 on 2 occasions. * Goal blood pressure less than 140/90. * Monitor orthostatic vital signs as noted below. * Monitor blood pressure trend. (2) Positional lightheadedness Status: Acute Problem Text: * Manual blood pressure was obtained on examination. * 134/84 sitting. 132/82 standing. * Patient is reporting some positional lightheadedness/dizziness, this has been mild. * Of note the patient has been receiving trazodone 100 mg 07/08-07/10. * The patient did receive trazodone 150 mg 07/11. * The patient receives trazodone and prazosin as per psychiatry, these can contribute to orthostatic hypotension. * Remains on Cozaar as noted above. * Request orthostatic vital signs daily. (3) Carpal tunnel syndrome Status: Chronic Problem Text: * Continue Mobic 7.5 mg po daily. (4) GERD (gastroesophageal reflux disease) Status: Chronic Problem Text: * Continue Prilosec 20 mg by mouth daily. (5) Headache Status: Chronic Problem Text: * Continue Maxalt as needed at onset of headache Plan / VTE VTE Prophylaxis Ordered?: No (ambulatory) Subjective Review of Systems CC/HPI The patient is a 46-year-old male admitted with a reason for visit of Unspecified Depressive D/O. Events since last encounter Requested to evaluate patient related to blood pressure. Patient states he does have some lightheadedness with changing positions. Cozaar was increased to 50 mg 07/08/16 for additional blood pressure control. Blood pressure trends are noted to be 119-140/58-94. Isolated 160/90 and 157/90 on 2 occasions. Objective Physical Examination General Exam: Positive: Alert Eye Exam: Positive: PERRLA ENT Exam: Positive: Atraumatic, Mucous membr. moist/pink, Pharynx Normal Chest Exam: Positive: Clear to auscultation, Normal air movement Heart Exam: Positive: Normal S1, Normal S2, Rate Normal, Regular Rhythm, Negative: Murmurs, Rubs Abdomen Exam: Positive: Normal bowel sounds, Soft, Negative: Hepatospenomegaly, Tenderness Skin Exam: Positive: Nl turgor and temperature Neuro Exam: Positive: Normal Gait Vital Signs/I&O Vital Signs Date Time Temp Pulse Resp B/P Pulse Ox O2 Delivery O2 Flow Rate FiO2 07/12/16 11:13 132/82 07/12/16 11:12 96.6 94 18 Li Valerio Jul 12, 2016 11:52
--- NOTE | 2016-07-12 12:21 | IPNPDOC ---
[facility] Progress Note Progress Note DATE OF SERVICE: 07/12/16 HISTORY: Patient was seen today to evaluate treatment progress on the inpatient unit. Patient was observed to be sleeping in bed, awoke easily, readily sat up to engage with bid writer. Patient is more responsive today, rates current anxiety level of 6/10, depression 5/10, denies audiovisual hallucinations, and denies urge to engage in self-injurious behavior. With regard to suicidal or homicidal ideation and states, "sometimes I feel useless, like I'm a piece of crap because I don't feel the love from my anymore. I guess I'm selfish." On further exploration, patient indicates he has no plan or intent to harm self, further offers no indication of passive suicidality, is able to agree to alert staff if symptoms/negative thinking worsen or become unmanageable. Patient complains of a.m. dizziness, a symptom he has reported as existing prior to hospitalization. Symptom may be associated with prazosin which patient was taking prior to hospitalization, denies worsening of symptoms since the addition of trazodone. Patient's prazosin was recently increased from 5 mg to 6 mg, patient states he does not want medication decreased at this time and states symptoms of a and dizziness are manageable. Refrigerator Room Clerk educated patient on fall precautions and ways to mitigate what may be a medication side effect, patient verbalizes understanding. Refrigerator Room Clerk advised patient to monitor for worsening of symptom and to alert staff if he experiences increased morning dizziness. Patient denies all other cardiac related symptoms including palpitations, headache, shortness of breath, and chest pain. Vitals taken at time of interaction (see below) and PA was made aware of recently cancelled echo and was asked to evaluate patient's cardiac status. Patient reports improvement to sleep with trazodone dose increase, denies nightmares symptoms. Patient is today agreeable to trialing Zoloft dose increase in effort to reduce symptoms of anxiety and depression and negative/ ruminative thinking. Patient denies symptoms of anger, irritability, or aggression. Patient further denies challenges with appetite, indicates energy level is normal, continues to experience challenges with concentration and focus. Patient presents with no signs of acute distress. [facility] remains active in the [facility], has reported history of TBI from 2007 (which [facility] is currently unable to corroborate) and is preparing retire from [employer] in 3 months. VITAL SIGNS: Please see below. Checked during interaction, B/P 136/88, P 84 ( manual), 146/95, P 94 (electronic). PA has been asked to evaluate patient's cardiac status NEW TEST RESULTS: Labs unremarkable on admission with exception of low Hgb and HCT, PA is monitoring. UDS negative on admission. Echo not yet completed, EKG completed 07/09/16 - Normal sinus rhythm with short [place] interval. Nonspecific T wave abnormality. Comparison tracing not on file CURRENT MEDICATIONS: See below. MENTAL STATUS EXAMINATION: Patient is a 46 -year-old , father of 2 children, active duty [employer]. Patient is pleasant, more cooperative today and appears less evasive, exhibits adequate personal hygiene, and appears stated age, eye contact fair today. Speech: Is less slow today, low volume at times, coherent, fairly spontaneous Thought processes: Clear, linear, generally goal-directed Rate of thoughts: mild delay today when talking about [employer] and emotions, otherwise within normal limits Thought content: Logical. Abstract reasoning: Appears within normal limits Associations: Intact Abnormal or psychotic thoughts: denies hallucinations, Delusions, Preoccupation with violence, Homicidal or suicidal ideation, and Obsessions. Judgment: Limited Insight: Limited Oriented to: Time, place and person. Recent and Remote Memory: Appears intact, no delay noted today. Attention Span and Concentration: Limited. Language: Normal. Fund of knowledge: Adequate Mood: "I'm okay." No mood lability noted, no agitation or irritability Affect: Constricted, brightens 1 today, congruent with affect. 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 Patient reports improvement to sleep, continues to report symptoms of anxiety and depression, presents with reduced delay in responses, makes effort to express his grief related feelings associated with [employer] and his relationship. Patient had EKG this past weekend reportedly due to experiencing tightness in chest, this morning reported increase in symptoms of dizziness which preexisted hospitalization, indicated symptoms are manageable, PA is monitoring. Provider over weekend increased patient's trazodone for sleep and prazosin to address ongoing nightmare symptoms. Trazodone continues to be prescribed for 150 mg po hs PRN insomnia and prazosin is now at 6 mg by mouth at bedtime. Will monitor need to adjust medications, prazosin primarily as patient reports dizziness which he attributed to prazosin prior to hospitalization and patient was not taking trazodone prior to hospitalization. Patient is today indicating he would like to trial dose increase to Zoloft in effort to reduce symptoms of anxiety and depression. Patient remains active and visible on unit, denies current suicidal and homicidal ideation, is able to effectively engage in safety planning process, and verbalizes awareness of how to access supportive services on the unit if needed. Patient verbalizes awareness of and agreement with discharge plan to return to [facility]. Contact has been made with [facility] and efforts have been made by multimedia services coordinator to contact [facility] social welfare research worker to discuss discharge planning and to confirm that patient has history of PTSD and TBI diagnoses, determine status of Echo, and to discuss discharge planning. MANAGEMENT PLAN: Increase Zoloft to 125 mg po q hs. Continue Trazodone to 150 mg po hs PRN insomnia, continue prazosin 6 mg po q hs and monitor need for dose reduction. Maintain safety precautions Patient to attend groups and participate in unit programming to develop coping strategies Engage patient in discharge planning process and arrange meeting with [facility] to evaluate safe discharge planning when appropriate Patient to return to [facility] and outpatient behavioral health at [place] for psychotherapy, recommend change from TeleMed management to [id number] medication management services Patient to follow up with [place] [facility] upon discharge Vital Signs Vital Signs Date Time Temp Pulse Resp B/P Pulse Ox O2 Delivery O2 Flow Rate FiO2 07/12/16 11:13 132/82 07/12/16 11:12 96.6 94 18 Current Medications Current Medications Acetaminophen (Tylenol) 650 mg Q6HP PRN PO HEADACHE or DISCOMFORT Last administered on 07/11/16t 18:04; Start 07/04/16 at 23:00; Stop 08/03/16 at 22:59 Al Hydrox/Mg Hydrox/Simethicone (Mylanta) 30 ml Q4HP PRN PO HEARTBURN/ INDIGESTION; Start 07/04/16 at 23:00; Stop 08/03/16 at 22:59 Home Med (Med Rec Complete!) ASDIRECTED XX ; Start 07/04/16 at 22:00; Stop at 00:14; Status DC Lidocaine (Lidoderm Patch) 1 patch QAM TD Last administered on 07/12/16 08:43 ; Start 07/05/16 at 09:00; Stop 08/04/16 at 08:59 Lidocaine (Lidoderm Patch) 1 patch QHS TD ; Start 07/04/16 at 21:00; Stop at 04:08; Status DC Loratadine (Claritin) 10 mg DAILYPRN PRN PO ALLERGIES; Start 07/05/16 at 00:30 ; Stop 08/04/16 at 00:29 Losartan Potassium (Cozaar) 25 mg DAILY PO Last administered on 07/07/16 09:28 ; Start 07/05/16 at 09:00; Stop 07/07/16 at 19:18; Status DC Losartan Potassium (Cozaar) 50 mg QAM PO Last administered on 07/12/16 08:44; Start 07/08/16 at 09:00; Stop 08/07/16 at 08:59 Magnesium Hydroxide (Milk Of Magnesia) 30 ml DAILYPRN PRN PO CONSTIPATION; Start 07/04/16 at 23:00; Stop 08/03/16 at 22:59 Meloxicam (Mobic) 7.5 mg QHS PO Last administered on 07/11/16 21:39; Start at 21:00; Stop 08/03/16 at 20:59 Non-Formulary Medication ( See Comment Field Below ) REMOVE LIDODERM PATCH DAILY@21 XX Last administered on 07/11/16 21:35; Start 07/05/16 at 21:00; Stop 08/04/16 at 20:59 Omeprazole (PriLOSEC) 20 mg DAILY PO Last administered on 07/12/16 08:44; Start 07/05/16 at 09:00; Stop 08/04/16 at 08:59 Prazosin HCl (Minipress) 5 mg BID PO ; Start 07/05/16 at 09:00; Stop 07/05/16 at 09:00; Status DC Prazosin HCl (Minipress) 5 mg QHS PO Last administered on 07/10/16 21:44; Start 07/04/16 at 21:00; Stop 07/11/16 at 01:13; Status DC Prazosin HCl (Minipress) 6 mg QHS PO Last administered on 07/11/16 21:40; Start 07/11/16 at 21:00; Stop 08/10/16 at 20:59 Rizatriptan Benzoate (Maxalt) 10 mg Q2HP PRN PO MIGRAINE Last administered on 18:09; Start 07/05/16 at 00:30; Stop 08/04/16 at 00:29 Sertraline HCl (Zoloft) 100 mg DAILY PO Last administered on 07/12/16 08:44; Start 07/11/16 at 09:00; Stop 08/10/16 at 08:59 Sertraline HCl (Zoloft) 100 mg DAILY@21 PO Last administered on 07/10/16 21:44 ; Start 07/04/16 at 21:00; Stop 07/11/16 at 01:17; Status DC Trazodone HCl (Desyrel) 50 mg QHSP PRN PO INSOMNIA Last administered on 02:06; Start 07/04/16 at 23:00; Stop 07/06/16 at 19:35; Status DC Trazodone HCl (Desyrel) 75 mg QHSP PRN PO INSOMNIA; Start 07/06/16 at 19:30; Stop 07/07/16 at 20:16; Status DC Trazodone HCl (Desyrel) 100 mg QHSP PRN PO INSOMNIA Last administered on 23:06; Start 07/07/16 at 20:15; Stop 07/11/16 at 17:14; Status DC Trazodone HCl (Desyrel) 150 mg QHS PRN PO INSOMNIA Last administered on 23:04; Start 07/11/16 at 21:00; Stop 08/10/16 at 20:59 Trazodone HCl (Desyrel) 200 mg QHS PO ; Start 07/11/16 at 21:00; Stop 07/11/16 at 21:00; Status DC Allergies Coded Allergies: Ibuprofen (Verified Allergy, Unknown, 02/22/16) Giovana Monroe Jul 12, 2016 12:21
[2016-07-12 18:22] VITALS: BP 138/83
[2016-07-12 19:08] VITALS: BP_SYST 127; BP_SYST 135; BP_SYST 138; BP_DIAS 83; BP_DIAS 88; BP_DIAS 92
[2016-07-12] MEDS: MELOXICAM (MOBIC) 7.5 MG TAB PO SCH (21:20)
[2016-07-12] MEDS: **NOTE PATIENT COMMENT** MISC XX SCH (21:21)
[2016-07-12] MEDS: PRAZOSIN 1 MG CAP PO SCH (21:21)
[2016-07-12 21:30] VITALS: BP 134/82
[2016-07-12] MEDS: traZODone 50 MG TAB PO PRN (23:04)
[2016-07-13 06:49] VITALS: BP 133/81
[2016-07-13 06:49] LABS: ANION GAP 7 MEQ/L (8-16); BLOOD UREA NITROGEN 9 MG/DL (7-18); CALCIUM LEVEL 8.6 MG/DL (8.5-10.1); CARBON DIOXIDE LEVEL 31 MEQ/L (21-32); CHLORIDE LEVEL 107 MEQ/L (98-107); CREATININE FOR GFR 0.96 MG/DL (0.70-1.30); GLOMERULAR FILTRATION RATE > 60.0 (>60); GLUCOSE, FASTING 103 MG/DL (70-105); POTASSIUM SERUM 3.7 MEQ/L (3.5-5.1); SODIUM LEVEL 145 MEQ/L (136-145)
[2016-07-13 08:31] VITALS: BP_SYST 132; BP_SYST 136; BP_DIAS 92
[2016-07-13] MEDS: LOSARTAN 50 MG TAB PO SCH (09:02)
[2016-07-13] MEDS: SERTRALINE 100 MG TAB PO SCH (09:02)
[2016-07-13] MEDS: OMEPRAZOLE 20 MG CAP PO SCH (09:02)
[2016-07-13] MEDS: SERTRALINE HCL 25 MG TABLET PO SCH (09:02)
[2016-07-13] MEDS: LIDOCAINE 5% (LIDODERM) PATCH TD SCH (09:03)
--- NOTE | 2016-07-13 11:44 | IPNPDOC ---
[facility] Progress Note Progress Note DATE OF SERVICE: 07/13/16 HISTORY: Patient was seen today to evaluate treatment progress on the inpatient unit. Patient indicated treatment meeting with [facility] went well and he indicated he is in agreement with plan to return to [facility], continue to work on transitioning out of the , and participate in therapy to address ongoing psychosocial concerns primarily related to relationship with . Patient has been visible, attending groups, cooperative with staff. Patient rates current anxiety level of 0/10, depression 4/10, denies audiovisual hallucinations, and denies urge to engage in self-injurious behavior. Patient today denies suicidal and homicidal ideation, further denies passive SI and reports reduced negative thinking. Patient agrees to alert staff if symptoms/negative thinking worsen or become unmanageable. Patient makes no mention of a.m. dizziness, a symptom he has reported as existing prior to hospitalization, denies medication side effects. Patient denies all other cardiac related symptoms including palpitations, headache, shortness of breath, and chest pain. PA continues to monitor and evaluate patient's cardiac status. Patient indicates prazosin at 6 mg dose, trazodone at increased dose, and Zoloft at increased dose are effective, feels his mood has improved, indicates sleep is good and denies nighttime waking and nightmares, reports reduced anxiety. Patient denies symptoms of anger, irritability, or aggression. Patient further denies challenges with appetite, indicates energy level, concentration, and focus are normal. Patient presents with no signs of acute distress and denies physical pain. VITAL SIGNS: Please see below. Checked during interaction, B/P 136/88, P 84 ( manual), 146/95, P 94 (electronic). PA has been asked to evaluate patient's cardiac status NEW TEST RESULTS: Labs unremarkable on admission with exception of low Hgb and HCT, PA is monitoring. UDS negative on admission. Echo not completed due to patient being inpatient. EKG completed 07/09/16 - Normal sinus rhythm with short [place] interval. Nonspecific T wave abnormality. Comparison tracing not on file CURRENT MEDICATIONS: See below. MENTAL STATUS EXAMINATION: Patient is a 46 -year-old , father of 2 children, active duty [employer]. Patient is pleasant, more cooperative and engageable today, appears less evasive, exhibits adequate personal hygiene, and appears stated age, makes improved eye contact today. Speech: Is of normal rate, rhythm, volume, coherent, more spontaneous Thought processes: Clear, linear, generally goal-directed Rate of thoughts: No delay today when talking about [employer] and emotions, relationship with Thought content: Logical. Abstract reasoning: Appears within normal limits Associations: Intact Abnormal or psychotic thoughts: Denies hallucinations, Delusions, Preoccupation with violence, Homicidal or suicidal ideation, and Obsessions. Judgment: Limited, some improvement Insight: Limited, some improvement Oriented to: Time, place and person. Recent and Remote Memory: Appears intact, no delay noted today. Attention Span and Concentration: Limited. Language: Normal. Fund of knowledge: Adequate Mood: "I'm okay with things, they're going to help me at the [facility] get ready and I 'm going to try to work things out with my ." No mood lability noted, no agitation or irritability Affect: Remains constricted, but brightens more frequently, congruent with affect. 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 Patient reports improvement to sleep and symptoms of anxiety and depression. Patient today resents with no delay in verbal responses , is more engageable. Patient indicates dosing creases to Zoloft, trazodone, and prazosin are effective and today denies medication side effects. PA continues to monitor cardiac status. Patient remains visible on unit, denies suicidal and homicidal ideation, is able to effectively engage in safety planning process, and verbalizes awareness of how to access supportive services on the unit if needed. Patient verbalizes awareness of and agreement with discharge plan to return to [facility], and is aware maintenance are being made him to return to [facility] early next week where he will receive outpatient psychotherapy and [facility] management through [facility] and will receive assistance in transitioning out of life. Addendum: [facility] case management social worker indicated during meeting the patient does have a history of TBI, has been evaluated by [place] [facility] unit, has been cleared and is receiving no treatment. bending shed worker also indicated patient may have history of PTSD but it would be related to childhood events, noncombat related, if patient has history/diagnosis at all. MANAGEMENT PLAN: Continue Zoloft 125 mg po q hs. Continue Trazodone to 150 mg po hs PRN insomnia, continue prazosin 6 mg po q hs and monitor need for dose reduction. Maintain safety precautions Patient to attend groups and participate in unit programming to develop coping strategies Engage patient in discharge planning process and arrange meeting with command to evaluate safe discharge planning when appropriate Patient to return to [facility] and outpatient behavioral health at [place] for psychotherapy, recommend change from TeleMed management to [id number] medication management services. Begin to prepare patient for discharge early next week Patient to follow up with [place] [facility] upon discharge Vital Signs Vital Signs Date Time Temp Pulse Resp B/P Pulse Ox O2 Delivery O2 Flow Rate FiO2 07/13/16 09:02 141/91 07/13/16 06:49 96.4 104 16 Laboratory Data 24H Labs Laboratory Tests 2 07/13/16 06:12: Anion Gap 7L, Blood Urea Nitrogen 9, Creatinine 0.96, Sodium Level 145, Potassium Level 3.7, Chloride Level 107, Carbon Dioxide Level 31, Calcium Level 8.6, Glomerular Filtration Rate > 60.0 CBC/BMP Laboratory Tests 07/13/16 06:12 Calcium Level 8.6 Current Medications Current Medications Acetaminophen (Tylenol) 650 mg Q6HP PRN PO HEADACHE or DISCOMFORT Last administered on 07/11/16 18:04; Start 07/04/16 at 23:00; Stop 08/03/16 at 22:59 Al Hydrox/Mg Hydrox/Simethicone (Mylanta) 30 ml Q4HP PRN PO HEARTBURN/ INDIGESTION; Start 07/04/16 at 23:00; Stop 08/03/16 at 22:59 Home Med (Med Rec Complete!) ASDIRECTED XX ; Start 07/04/16 at 22:00; Stop at 00:14; Status DC Lidocaine (Lidoderm Patch) 1 patch QAM TD Last administered on 07/13/16 09:03 ; Start 07/05/16 at 09:00; Stop 08/04/16 at 08:59 Lidocaine (Lidoderm Patch) 1 patch QHS TD ; Start 07/04/16 at 21:00; Stop at 04:08; Status DC Loratadine (Claritin) 10 mg DAILYPRN PRN PO ALLERGIES; Start 07/05/16 at 00:30 ; Stop 08/04/16 at 00:29 Losartan Potassium (Cozaar) 25 mg DAILY PO Last administered on 07/07/16 09:28 ; Start 07/05/16 at 09:00; Stop 07/07/16 at 19:18; Status DC Losartan Potassium (Cozaar) 50 mg QAM PO Last administered on 07/13/16 09:02; Start 07/08/16 at 09:00; Stop 08/07/16 at 08:59 Magnesium Hydroxide (Milk Of Magnesia) 30 ml DAILYPRN PRN PO CONSTIPATION; Start 07/04/16 at 23:00; Stop 08/03/16 at 22:59 Meloxicam (Mobic) 7.5 mg QHS PO Last administered on 07/12/16 21:20; Start at 21:00; Stop 08/03/16 at 20:59 Non-Formulary Medication ( See Comment Field Below ) REMOVE LIDODERM PATCH DAILY@21 XX Last administered on 07/12/16 21:21; Start 07/05/16 at 21:00; Stop 08/04/16 at 20:59 Omeprazole (PriLOSEC) 20 mg DAILY PO Last administered on 07/13/16 09:02; Start 07/05/16 at 09:00; Stop 08/04/16 at 08:59 Prazosin HCl (Minipress) 5 mg BID PO ; Start 07/05/16 at 09:00; Stop 07/05/16 at 09:00; Status DC Prazosin HCl (Minipress) 5 mg QHS PO Last administered on 07/10/16 21:44; Start 07/04/16 at 21:00; Stop 07/11/16 at 01:13; Status DC Prazosin HCl (Minipress) 6 mg QHS PO Last administered on 07/12/16 21:21; Start 07/11/16 at 21:00; Stop 08/10/16 at 20:59 Rizatriptan Benzoate (Maxalt) 10 mg Q2HP PRN PO MIGRAINE Last administered on 18:09; Start 07/05/16 at 00:30; Stop 08/04/16 at 00:29 Sertraline HCl (Zoloft) 25 mg DAILY PO Last administered on 07/13/16 09:02; Start 07/13/16 at 09:00; Stop 08/12/16 at 08:59 Sertraline HCl (Zoloft) 100 mg DAILY PO Last administered on 07/12/16 08:44; Start 07/11/16 at 09:00; Stop 07/12/16 at 12:23; Status DC Sertraline HCl (Zoloft) 100 mg DAILY PO Last administered on 07/13/16 09:02; Start 07/13/16 at 09:00; Stop 08/12/16 at 08:59 Sertraline HCl (Zoloft) 100 mg DAILY@21 PO Last administered on 07/10/16 21:44 ; Start 07/04/16 at 21:00; Stop 07/11/16 at 01:17; Status DC Trazodone HCl (Desyrel) 50 mg QHSP PRN PO INSOMNIA Last administered on 02:06; Start 07/04/16 at 23:00; Stop 07/06/16 at 19:35; Status DC Trazodone HCl (Desyrel) 75 mg QHSP PRN PO INSOMNIA; Start 07/06/16 at 19:30; Stop 07/07/16 at 20:16; Status DC Trazodone HCl (Desyrel) 100 mg QHSP PRN PO INSOMNIA Last administered on 23:06; Start 07/07/16 at 20:15; Stop 07/11/16 at 17:14; Status DC Trazodone HCl (Desyrel) 150 mg QHS PRN PO INSOMNIA Last administered on 23:04; Start 07/11/16 at 21:00; Stop 08/10/16 at 20:59 Trazodone HCl (Desyrel) 200 mg QHS PO ; Start 07/11/16 at 21:00; Stop 07/11/16 at 21:00; Status DC Allergies Coded Allergies: Ibuprofen (Verified Allergy, Unknown, 02/22/16) Giovana Monroe Jul 13, 2016 11:44
[2016-07-13 18:00] VITALS: BP 144/89
[2016-07-13] MEDS: MELOXICAM (MOBIC) 7.5 MG TAB PO SCH (20:53)
[2016-07-13] MEDS: **NOTE PATIENT COMMENT** MISC XX SCH (20:53)
[2016-07-13] MEDS: PRAZOSIN 1 MG CAP PO SCH (20:53)
[2016-07-13] MEDS: traZODone 50 MG TAB PO PRN (23:05)
[2016-07-14 06:00] VITALS: BP 152/89
[2016-07-14] MEDS: SERTRALINE HCL 25 MG TABLET PO SCH (09:06)
[2016-07-14] MEDS: OMEPRAZOLE 20 MG CAP PO SCH (09:06)
[2016-07-14] MEDS: LOSARTAN 50 MG TAB PO SCH (09:06)
[2016-07-14] MEDS: LIDOCAINE 5% (LIDODERM) PATCH TD SCH (09:06)
[2016-07-14] MEDS: SERTRALINE 100 MG TAB PO SCH (09:06)
[2016-07-14] MEDS: ACETAMINOPHEN TAB 650MG DOSE (2X325MG) PO PRN ×2 (09:07→21:50)
--- NOTE | 2016-07-14 11:43 | IPNPDOC ---
[facility] Progress Note Progress Note DATE OF SERVICE: 07/14/16 HISTORY: Patient was seen today to evaluate treatment progress on the inpatient unit. Patient reports reduced level of anxiety, indicates depression remains moderate, denies suicidal and homicidal ideation, denies audiovisual hallucinations, denies urge to engage in self-injurious behavior. Patient further denies passive symptoms of suicidal ideation, reports ongoing negative thinking related to exiting [employer] and relationship tension with . Patient makes no mention of a.m. dizziness, a symptom he has reported as existing prior to hospitalization, denies medication side effects. Patient denies all other cardiac related symptoms including palpitations, headache, shortness of breath, and chest pain. PA continues to monitor and evaluate patient's cardiac status. Patient indicates prazosin at 6 mg dose and trazodone at increased dose are effective, makes requests today for dosing adjustment to Zoloft in effort to further reduce symptoms of depression and improve patient's ability to cope with current social stressors. Patient indicates sleep remains good and denies nighttime waking and nightmares. Patient denies symptoms of anger, irritability, or aggression, further denies challenges with appetite, indicates energy level, concentration, and focus are normal. Patient presents with no signs of acute distress and denies physical pain. Patient speaks openly today about his relationship concerns with his , becomes tearful when expressing his concerns, however, indicates he is feeling hopeful about future relationships and notes is planning to visit him on Sunday and has agreed to attend marital counseling with patient. VITAL SIGNS: Please see below. PA continues to monitor patient's cardiac status NEW TEST RESULTS: Labs unremarkable on admission with exception of low Hgb and HCT, PA is monitoring. UDS negative on admission. Echo not completed due to patient being inpatient. EKG completed 07/09/16 - Normal sinus rhythm with short NH interval. Nonspecific T wave abnormality. Comparison tracing not on file CURRENT MEDICATIONS: See below. 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 Patient is pleasant, more cooperative and engageable today, appears less evasive, exhibits adequate personal hygiene, and appears stated age, makes improved eye contact today. Speech: Is of normal rate, rhythm, volume, coherent, more spontaneous Thought processes: Clear, linear, generally goal-directed Rate of thoughts: No delay today when talking about [employer] and emotions, relationship with Thought content: Logical. Abstract reasoning: Appears within normal limits Associations: Intact Abnormal or psychotic thoughts: Denies hallucinations, Delusions, Preoccupation with violence, Homicidal or suicidal ideation, and Obsessions. Judgment: Appears adequate, continues to improve Insight: Limited, continues to improve Oriented to: Time, place and person. Recent and Remote Memory: Appears intact, no delay noted today. Attention Span and Concentration: Limited. Language: Normal. Fund of knowledge: Adequate Mood: "I'm okay with things, my is coming to visit and I'm hoping we can work things out." No mood lability noted, no agitation or irritability, becomes tearful 1 when talking about his feelings for his Affect: Remains constricted, but brightens more frequently, congruent with affect. 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 Patient reports ongoing improvement to sleep and symptoms of anxiety, also reports ongoing depression and today indicates he feels another dosing adjustment to Zoloft would beneficial. Patient today presents with no delay in verbal responses, is more engageable, makes improved eye contact. Patient indicates dosing increases to trazodone and prazosin remain effective, today denies medication side effects including am dizziness. PA continues to monitor cardiac status. Patient remains visible on unit, denies suicidal and homicidal ideation, is able to effectively engage in safety planning process, and verbalizes awareness of how to access supportive services on the unit if needed. Patient verbalizes awareness of and agreement with discharge plan to return to [facility], and is aware arrangements are being made for him to return to [facility] next Sunday at which time he will begin receiving outpatient psychotherapy and medication management through the [facility], and will receive assistance in transitioning out of life. Day Care Home Mother has requested that patient receive [id number], as opposed to tele-psychiatry, for medication management upon return to [place]. Will continue to monitor patient's response to medications, presence of side effects, and need for dosing adjustment. Addendum: U social media senior associate indicated during meeting on 07/13/16 that patient does have a history of TBI, has been evaluated by [place] TBI unit, has been cleared and is receiving no treatment. dry cure worker also indicated patient may have history of PTSD but it would be related to childhood events, noncombat related, if patient has history/diagnosis at all. MANAGEMENT PLAN: Increase Zoloft to 150 mg po q am. Continue Trazodone to 150 mg po hs PRN insomnia, continue prazosin 6 mg po q hs and monitor need for dose reduction. Maintain safety precautions Patient to attend groups and participate in unit programming to develop coping strategies Engage patient in discharge planning process and arrange meeting with command to evaluate safe discharge planning when appropriate Patient to return to [facility] and outpatient behavioral health at [place] for psychotherapy, recommend change from TeleMed management to [id number] medication management services. Begin to prepare patient for discharge next Sunday. Patient to follow up with [place] PCM upon discharge TIME SPENT: 35 minutes. Vital Signs Vital Signs Date Time Temp Pulse Resp B/P Pulse Ox O2 Delivery O2 Flow Rate FiO2 07/14/16 09:06 152/89 07/14/16 06:00 96.7 76 18 Current Medications Current Medications Medications (Trade) Dose Ordered Sig/Berna Route PRN Reason Start Time Stop Time Status Last Admin Dose Admin Acetaminophen (Tylenol) 650 mg Q6HP PRN PO HEADACHE or DISCOMFORT 07/04/16 23:00 08/03/16 22:59 07/14/16 09:07 Al Hydrox/Mg Hydrox/Simethicone (Mylanta) 30 ml Q4HP PRN PO HEARTBURN/INDIGESTION 07/04/16 23:00 08/03/16 22:59 Home Med (Med Rec Complete!) ASDIRECTED XX 07/04/16 22:00 07/05/16 00:14 DC Lidocaine (Lidoderm Patch) 1 patch QAM TD 07/05/16 09:00 08/04/16 08:59 07/14/16 09:06 Lidocaine (Lidoderm Patch) 1 patch QHS TD 07/04/16 21:00 07/05/16 04:08 DC Loratadine (Claritin) 10 mg DAILYPRN PRN PO ALLERGIES 07/05/16 00:30 08/04/16 00:29 Losartan Potassium (Cozaar) 25 mg DAILY PO 07/05/16 09:00 07/07/16 19:18 DC 07/07/16 09:28 Losartan Potassium (Cozaar) 50 mg QAM PO 07/08/16 09:00 08/07/16 08:59 07/14/16 09:06 Magnesium Hydroxide (Milk Of Magnesia) 30 ml DAILYPRN PRN PO CONSTIPATION 07/04/16 23:00 08/03/16 22:59 Meloxicam (Mobic) 7.5 mg QHS PO 07/04/16 21:00 08/03/16 20:59 07/13/16 20:53 Non-Formulary Medication ( See Comment Field Below ) REMOVE LIDODERM PATCH DAILY@21 XX 07/05/16 21:00 08/04/16 20:59 07/13/16 20:53 Omeprazole (PriLOSEC) 20 mg DAILY PO 07/05/16 09:00 08/04/16 08:59 07/14/16 09:06 Prazosin HCl (Minipress) 5 mg BID PO 07/05/16 09:00 07/05/16 09:00 DC Prazosin HCl (Minipress) 5 mg QHS PO 07/04/16 21:00 07/11/16 01:13 DC 07/10/16 21:44 Prazosin HCl (Minipress) 6 mg QHS PO 07/11/16 21:00 08/10/16 20:59 07/13/16 20:53 Rizatriptan Benzoate (Maxalt) 10 mg Q2HP PRN PO MIGRAINE 07/05/16 00:30 08/04/16 00:29 07/09/16 18:09 Sertraline HCl (Zoloft) 25 mg DAILY PO 07/13/16 09:00 08/12/16 08:59 07/14/16 09:06 Sertraline HCl (Zoloft) 100 mg DAILY PO 07/11/16 09:00 07/12/16 12:23 DC 07/12/16 08:44 Sertraline HCl (Zoloft) 100 mg DAILY PO 07/13/16 09:00 08/12/16 08:59 07/14/16 09:06 Sertraline HCl (Zoloft) 100 mg DAILY@21 PO 07/04/16 21:00 07/11/16 01:17 DC 07/10/16 21:44 Trazodone HCl (Desyrel) 50 mg QHSP PRN PO INSOMNIA 07/04/16 23:00 07/06/16 19:35 DC 07/05/16 02:06 Trazodone HCl (Desyrel) 75 mg QHSP PRN PO INSOMNIA 07/06/16 19:30 07/07/16 20:16 DC Trazodone HCl (Desyrel) 100 mg QHSP PRN PO INSOMNIA 07/07/16 20:15 07/11/16 17:14 DC 07/10/16 23:06 Trazodone HCl (Desyrel) 150 mg QHS PRN PO INSOMNIA 07/11/16 21:00 08/10/16 20:59 07/13/16 23:05 Trazodone HCl (Desyrel) 200 mg QHS PO 07/11/16 21:00 07/11/16 21:00 DC Allergies Coded Allergies: Ibuprofen (Verified Allergy, Unknown, 02/22/16) Giovana Monroe Jul 14, 2016 11:43
[2016-07-14 12:00] VITALS: BP_SYST 126; BP_SYST 127; BP_SYST 130; BP_DIAS 72; BP_DIAS 73; BP_DIAS 75
[2016-07-14 18:31] VITALS: BP 136/85
[2016-07-14 18:32] VITALS: BP_SYST 129; BP_SYST 135; BP_DIAS 81; BP_DIAS 83
[2016-07-14] MEDS: MELOXICAM (MOBIC) 7.5 MG TAB PO SCH (21:49)
[2016-07-14] MEDS: PRAZOSIN 1 MG CAP PO SCH (21:50)
[2016-07-14] MEDS: **NOTE PATIENT COMMENT** MISC XX SCH (21:52)
[2016-07-14] MEDS: traZODone 50 MG TAB PO PRN (23:57)
[2016-07-15] MEDS: SERTRALINE 100 MG TAB PO SCH (08:27)
[2016-07-15] MEDS: LIDOCAINE 5% (LIDODERM) PATCH TD SCH (08:27)
[2016-07-15] MEDS: LOSARTAN 50 MG TAB PO SCH (08:27)
[2016-07-15] MEDS: SERTRALINE HCL 25 MG TABLET PO SCH (08:28)
[2016-07-15] MEDS: OMEPRAZOLE 20 MG CAP PO SCH (08:28)
[2016-07-15 12:23] VITALS: BP_SYST 130; BP_SYST 140; BP_DIAS 73; BP_DIAS 83
[2016-07-15 12:24] VITALS: BP 121/70
[2016-07-15 18:14] VITALS: BP 131/70
[2016-07-15] MEDS: **NOTE PATIENT COMMENT** MISC XX SCH (21:01)
[2016-07-15] MEDS: MELOXICAM (MOBIC) 7.5 MG TAB PO SCH (21:39)
[2016-07-15] MEDS: PRAZOSIN 1 MG CAP PO SCH (21:40)
[2016-07-15] MEDS: traZODone 50 MG TAB PO PRN (23:13)
[2016-07-16 06:10] VITALS: BP 159/97
[2016-07-16] MEDS: OMEPRAZOLE 20 MG CAP PO SCH (09:24)
[2016-07-16] MEDS: LOSARTAN 50 MG TAB PO SCH (09:25)
[2016-07-16] MEDS: SERTRALINE 100 MG TAB PO SCH (09:25)
[2016-07-16] MEDS: ACETAMINOPHEN TAB 650MG DOSE (2X325MG) PO PRN ×3 (09:25→22:42)
[2016-07-16] MEDS: SERTRALINE HCL 25 MG TABLET PO SCH (09:25)
[2016-07-16] MEDS: LIDOCAINE 5% (LIDODERM) PATCH TD SCH (09:26)
[2016-07-16 18:00] VITALS: BP 136/68
[2016-07-16] MEDS: **NOTE PATIENT COMMENT** MISC XX SCH (21:17)
[2016-07-16] MEDS: MELOXICAM (MOBIC) 7.5 MG TAB PO SCH (21:17)
[2016-07-16] MEDS: PRAZOSIN 1 MG CAP PO SCH (21:17)
[2016-07-16] MEDS: traZODone 50 MG TAB PO PRN (22:41)
[2016-07-17 07:31] VITALS: BP 144/82
[2016-07-17] MEDS: LIDOCAINE 5% (LIDODERM) PATCH TD SCH (08:40)
[2016-07-17] MEDS: OMEPRAZOLE 20 MG CAP PO SCH (08:40)
[2016-07-17] MEDS: SERTRALINE 100 MG TAB PO SCH (08:41)
[2016-07-17] MEDS: SERTRALINE HCL 25 MG TABLET PO SCH (08:41)
[2016-07-17] MEDS: LOSARTAN 50 MG TAB PO SCH (08:41)
[2016-07-17 12:00] VITALS: BP 136/81
--- NOTE | 2016-07-17 17:00 | IPN ---
DATE: 07/17/2016 CHIEF COMPLAINT: "I feel much better." OBJECTIVE: He is very close to baseline. The patient reports his mood has improved since admission and his insomnia/nightmares have also improved with the help of medication. The patient is denying any side effect from the treatment. We discussed treatment plan. The patient is denying suicidal or homicidal ideation. The patient does not have auditory or visual hallucinations or delusions. MENTAL STATUS EXAMINATION: The patient is dressed in [facility]. The patient is calm and cooperative. He has poor eye contact. His speech is normal in rate, volume and articulation, is coherent and spontaneousl. Mood is slightly depressed and anxious but significantly improved from admission. Affect is somewhat restricted. No delusions or hallucinations. Memory, attention, and concentration are fair. The patient is denying suicidal or homicidal ideation. Insight and judgment is fair. ASSESSMENT: 1. Major depressive disorder. 2. Posttraumatic stress disorder (PTSD). PLAN 1. Continue with Effexor 150 mg by mouth every morning. 2. Continue with trazodone 150 mg by mouth at bedtime as needed for insomnia. 3. Continue with Zoloft 100 mg by mouth daily. 4. Continue medication management, individual and group therapy. 5. If the patient continues improving, we will discharge tomorrow.
[2016-07-17 18:00] VITALS: BP 151/98
[2016-07-17] MEDS: **NOTE PATIENT COMMENT** MISC XX SCH (20:45)
[2016-07-17] MEDS: MELOXICAM (MOBIC) 7.5 MG TAB PO SCH (20:46)
[2016-07-17] MEDS: PRAZOSIN 1 MG CAP PO SCH (20:47)
[2016-07-17] MEDS: ACETAMINOPHEN TAB 650MG DOSE (2X325MG) PO PRN (20:47)
[2016-07-17] MEDS: traZODone 50 MG TAB PO PRN (22:03)
[2016-07-18 06:00] VITALS: BP 148/96
[2016-07-18] MEDS: OMEPRAZOLE 20 MG CAP PO SCH (08:36)
[2016-07-18] MEDS: SERTRALINE 100 MG TAB PO SCH (08:36)
[2016-07-18 08:37] VITALS: BP 142/92
[2016-07-18] MEDS: LOSARTAN 50 MG TAB PO SCH (08:37)
[2016-07-18] MEDS: SERTRALINE HCL 25 MG TABLET PO SCH (08:37)
[2016-07-18] MEDS: LIDOCAINE 5% (LIDODERM) PATCH TD SCH (08:37)
[2016-07-18] MEDS ORDERED: LOSA50TA20 PO (10:06)
[2016-07-18] MEDS ORDERED: TRAZ150T14 PO (10:18)
[2016-07-18] MEDS ORDERED: OMEP20CA3 PO (10:42)
[2016-07-18] MEDS ORDERED: MELO7.5T6 PO (10:42)
[2016-07-18] MEDS ORDERED: LIDO5TD TD (10:42)
[2016-07-18] MEDS ORDERED: COZA50TA PO (10:42)
[2016-07-18] MEDS ORDERED: TRAZO50TA PO (11:01)
[2016-07-18] MEDS ORDERED: PRAZ2CAP PO (11:01)
[2016-07-18] MEDS ORDERED: SERT-138 PO (11:02)
[2016-07-18] MEDS ORDERED: SERT-141 PO (11:02)
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
[2016-07-18] MEDS ORDERED: PRAZOSIN 1 MG CAP PO SCH (21:00)
[2016-07-19] MEDS ORDERED: SERTRALINE 100 MG TAB PO SCH (09:00)
[2016-07-19] MEDS ORDERED: SERTRALINE HCL 50 MG TAB PO SCH ×2 (09:00)
== END 2016-07-18 11:20 | disposition home or self-care (01) | DRG 885 ==
LOC: M ED 19:03 → M PSY 07-05 00:02
PROVIDERS: ADMIT Psychiatry & Neurology Psychiatry; ATTEND Psychiatry & Neurology Psychiatry
DX: F33.1 Major depressive disorder, recurrent, moderate (principal); F43.23 Adjustment disorder with mixed anxiety and depressed mood; F43.10 Post-traumatic stress disorder, unspecified; J30.9 Allergic rhinitis, unspecified; K21.9 Gastro-esophageal reflux disease without esophagitis; I10 Essential (primary) hypertension; H91.93 Unspecified hearing loss, bilateral; G56.01 Carpal tunnel syndrome, right upper limb; R51 Headache; H81.10 Benign paroxysmal vertigo, unspecified ear; Z56.6 Other physical and mental strain related to work; Z91.82 Personal history of military deployment; Z87.820 Personal history of traumatic brain injury; Z79.899 Other long term (current) drug therapy